=== PATIENT | female | born 1955 | race Caucasian/White ===

== ENCOUNTER 2020-09-14 18:32 | Emergency (ER) | payer OTHER, SELFPAY ==
--- NOTE | ~2020-09-14 | CT_ITS ---
EXAMINATION: CT cervical spine wo con DATE: 09/14/2020 20:00 INDICATION: Head injury. TECHNIQUE: Computed tomography (CT) of the cervical spine was performed without intravenous contrast. Automated exposure control and iterative reconstruction technique were employed. The dose-length pro duct was 1059.33 mGy-cm. COMPARISON: None FINDINGS: There is 3 degrees levocurvature of cervical spine. There is hypolordosis of cervical spine . Vertebral body heights are normal. There is moderately decreased disc height at C4-C5. The followin g disc levels are specifically discussed: C2-C3: There is mild left uncovertebral joint osteoarthritis. There is no facet joint osteoarthritis. There is no neural foraminal stenosis. There is no central canal stenosis. C3-C4: There is mild left uncovertebral joint osteoarthritis. There is mild right and moderate left f acet joint osteoarthritis. There is no neural foraminal stenosis. There is no central canal stenosis. C4-C5: There is moderate right and mild left uncovertebral joint osteoarthritis. There is no facet anju int osteoarthritis. There is mild right neural foraminal stenosis. There is mild central canal stenos is. C5-C6: There is no uncovertebral joint osteoarthritis. There is mild left facet joint osteoarthritis. There is no neural foraminal stenosis. There is no central canal stenosis. C6-C7: There is no uncovertebral joint osteoarthritis. There is no facet joint osteoarthritis. There is no neural foraminal stenosis. There is no central canal stenosis. C7-T1: There is no uncovertebral joint osteoarthritis. There is mild bilateral facet joint osteoarthr itis. There is no neural foraminal stenosis. There is no central canal stenosis. IMPRESSION: 1. No fracture. 2. Moderate cervical spondylosis. Reviewed, dictated and finalized at location A.
--- NOTE | ~2020-09-14 | XR_ITS ---
EXAMINATION: XR chest 2V DATE: 09/14/2020 20:01 INDICATION: Weakness. Fall. TECHNIQUE: Frontal and lateral views of the chest were obtained. COMPARISON: None. FINDINGS: Calcified right lung nodules and calcified right hilar and mediastinal lymph nodes are cons istent with old granulomatous disease. No pleural effusion or pneumothorax. The heart size is normal. There is a fracture of surgical neck of proximal left humerus with impaction. IMPRESSION: 1. No acute cardiopulmonary disease. 2. Fracture of surgical neck of proximal left humerus, likely chronic. Reviewed, dictated and finalized at location A.
--- NOTE | ~2020-09-14 | CT_ITS ---
EXAMINATION: CT brain wo con DATE: 09/14/2020 20:00 INDICATION: Head injury. TECHNIQUE: Computed tomography (CT) of the head was performed without intravenous contrast. The mA wa s adjusted according to patient size. Iterative reconstruction technique was employed. The dose-lengt h product was 1059.33 mGy-cm. COMPARISON: None FINDINGS: There are scattered areas of low attenuation in the cerebral white matter. There are old la cunar infarcts in left thalamus. There is a 3.9 x 2.7 cm hyperdense mass in suprasellar cistern cente red to the left of midline. There are embolization coils adjacent to the mass. There is no intracrani al hemorrhage. The ventricles are normal in size. There is opacification of the visualized portion of right maxillary sinus. There are likely changes of ocular lens replacement surgeries. The mastoid ai r cells are normal. IMPRESSION: 1. 3.9 cm hyperdense mass in suprasellar cistern, likely a giant aneurysm given the adjacent emboliza tion coils. Consider head CTA. 2. Old lacunar infarcts in left thalamus. 3. Mild nonspecific cerebral white matter disease, which likely represents chronic small vessel ische bee disease. Reviewed, dictated and finalized at location A. IMPRESSION: 1. 3.9 cm hyperdense mass in suprasellar cistern, likely a giant aneurysm given the adjacent embolization coils. Consider head CTA. 2. Old lacunar infarcts in left thalamus. 3. Mild nonspecific cerebral white matter disease, which likely represents chart reader patricia small vessel ischemic disease.
--- NOTE | ~2020-09-14 | CT_ITS ---
EXAMINATION: CTA brain carotid DATE: 09/14/2020 21:54 INDICATION: Cerebrovascular accident. Cerebral aneurysm. TECHNIQUE: Computed tomographic angiography (CTA) of the head was performed without and with 100 mL O mnipaque-350 intravenous contrast. CTA of the neck was performed with intravenous contrast. Automated exposure control and iterative reconstruction technique were employed. The dose-length product was 1 124.45 mGy-cm. Maximum intensity projection and volume rendered 3D-reconstructions were created by john schmid technologist on a separate workstation. COMPARISON: Head CT at 7:33 PM FINDINGS: HEAD CTA: There are old lacunar infarcts in the left thalamus. There are scattered areas of low atten uation in the cerebral white matter. There is no intracranial hemorrhage, acute infarction, or abnorm al intracranial mass lesion. The ventricles are normal in size. There is complete opacification of ri ght maxillary sinus. There are likely changes of ocular lens replacement surgeries. The mastoid air c ells are normal. Left vertebral artery is dominant. There is a stent in basilar artery. There is a st ent in right posterior cerebral artery. There is a 3.9 x 2.7 cm basilar tip aneurysm. There is a coil mass in the aneurysm. There is contrast opacification in the aneurysm measuring 16 x 13 mm. There is no significant stenosis of the intracranial internal carotid arteries or anterior or middle cerebral arteries. 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 Anterior communicating a rtery is normal. The posterior communicating arteries are likely embolized distally. NECK CTA: There is ectasia of the visualized portion of ascending aorta measuring 4.0 cm. Calcified m ediastinal lymph nodes are consistent with old granulomatous disease. There are no pathologically enl arged lymph nodes. There are is a an 8 mm nodule in left thyroid lobe, likely not clinically signific ant. There is no significant stenosis of the vertebral arteries. There is plaque in the proximal inte rnal carotid arteries with 0% stenosis relative to normal distal artery lumen diameters. There is mod erate cervical spondylosis. IMPRESSION: 1. 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 2. 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 3. Old lacunar infarcts in left thalamus. 4. Mild nonspecific cerebral white matter disease, which likely represents chronic small vessel ische bee disease. 5. 0% stenosis of the proximal internal carotid arteries relative to normal distal artery lumen diame ters (NASCET criteria). Reviewed, dictated and finalized at location A. IMPRESSION: 1. 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 2. 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 3. Old lacunar infarcts in left thalamus. 4. 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 5. 0% stenosis of the proximal internal carotid arteries relative to normal dis lilo artery lumen diameters (NASCET criteria).
[2020-09-14 18:35] VITALS: BP 131/98; PULSE 92; RESP 20; TEMP 36.7; O2SAT 94
--- NOTE | 2020-09-14 19:11 | ECG_ITS ---
Measurements Intervals [place] Rate: 98 P: 56 MA: 165 QRS: 20 QRSD: 94 T: 70 QT: 356 QTc: 456 Interpretive Statements SINUS RHYTHM ANTERIOR INFARCT, AGE INDETERMINATE INFERIOR INFARCT, AGE INDETERMINATE BORDERLINE ST-T WAVE ABNORMALITY- HIGH LATERAL LEADS BASELINE ARTIFACT- I, III, AVL, V6 ABNORMAL ECG Electronically Signed On 09-14-2020 20:17:46 CDT by Juan Carlos Bailey D.O.
--- NOTE | 2020-09-14 19:26 | ED.FALL ---
HPI - Fall General Chief Complaint: Fall Stated Complaint: glf, sleepy today Time Seen by Provider: 09/14/20 18:59 Source: family Mode of arrival: EMS Limitations: dementia and other (cva) History of Present Illness HPI Narrative: This is a 65 year old female with history of cerebral aneurysm, CVA with right side hemiparesis, Hypertension who presents from [facility] for evaluation of a fall. Her son is at bedside and he states patient suffered a stroke 1 month ago. She was admitted to [facility] for 1 week and [facility] for 3 weeks. She is now staying at correction in [place]. She has minimal movement to right arm due to CVA and she has slurred speech from her stroke. He states he was told patient had an unwitnessed fall, but patient denies hitting her head. Patient is lethargic but he states patient has been having intermittent episodes of lethargy for several weeks before her stroke. Patient states she fell because she was dizzy. She denies headache, nausea, vomiting, chest pain, sob, abdominal pain. Son also notes patient has broken left arm. He states ortho states left arm does not require splinting or surgery Related Data Home Medications Medication Instructions Recorded Confirmed acetaminophen 325 mg PO ONCE PRN 09/14/20 09/14/20 aspirin 325 mg PO DAILY 09/14/20 atorvastatin 80 mg PO DAILY 09/14/20 clopidogrel 75 mg PO DAILY 09/14/20 enoxaparin 40 mg SUBCUT DAILY 09/14/20 09/14/20 ergocalciferol (vitamin D2) 1,250 mcg PO WEEKLY 09/14/20 09/14/20 fluoxetine 20 mg PO DAILY 09/14/20 09/14/20 lidocaine ea 09/14/20 lisinopril 5 mg PO DAILY 09/14/20 09/14/20 metoprolol succinate 25 mg PO DAILY 09/14/20 09/14/20 polyethylene glycol 3350 [Miralax] 09/14/20 sennosides [senna] 8.6 mg PO DAILY PRN 09/14/20 Allergies Allergy/AdvReac Type Severity Reaction Status Date / Time No Known Allergies Allergy Verified 09/14/20 18:58 Review of Systems Review of Systems: ROS unobtainable: Yes unobtainable due to medical condition [facility] Past Medical History Medical History (Updated 09/15/20 @ 06:11 by Heather Rosenthal MD) Cataract Cerebral aneurysm CVA (cerebral vascular accident) Hypertension Proximal humerus fracture Surgical History Surgical History (Updated 09/14/20 @ 19:32 by Heather Rosenthal MD) S/P clamping of cerebral aneurysm Social History Social History (Updated 09/14/20 @ 19:32 by Heather Rosenthal MD) Smoking status: Current every day smoker Exam Const: General: no acute distress Other: lethargic , responds to voice. 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 oriented to person and place Course Reevaluation(s) Reevaluation #1: PAtient's son is at bedside. He states patient is at her baseline and she is just here because she fell. I discussed labs and imaging. HE is aware of 2 aneursym and her [facility] doctors are following. He is comfortable with discharge. He has no questions or concerns. Date: 09/14/20 Time: 23:00 Vital Signs Vital signs: Vital Signs Temperature 98.1 F 09/14/20 18:35 Pulse Rate 92 09/14/20 18:35 Respiratory Rate 20 09/14/20 18:35 Blood Pressure 131/98 H 09/14/20 18:35 Pulse Oximetry 94 09/14/20 18:35 Temperature 98.1 F 09/14/20 18:35 Pulse Rate 92 09/14/20 18:35 Respiratory Rate 20 09/14/20 18:35 Blood Pressure 131/98 H 09/14/20 18:35 Pulse Oximetry 94 09/14/20 18:35 MDM - Fall L
[2020-09-14 19:31] LABS: Alveolar/Arterial O2 Gradient 39.1 mmHg; Base Excess ABG -0.4 mEq/l (+/-2.0); Carboxyhemoglobin 0.9 % THb (0-2.0); Device ROOM AIR; Fractional Inspired Oxygen 21 %; Methemoglobin ABG 0.2 %THb (0-1.5); Modified Allen's Test Pass; Oxygen Content ABG 19.5 %vol (16.0-22.0); Oxygen Saturation ABG 94.8 % (95.0-100.0); Oxyhemoglobin 93.5 % THb (90.0-100.0); PCO2 ABG 34.2 mmHg (35.0-45.0); PO2 ABG 69.7 mmHg (80.0-100.0); PO2 FiO2 Ratio Arterial Blood 3.32 %; Reduced Hemoglobin 5.4 %THb (0-5.0); Site Drawn RIGHT RADIAL; Total Hemoglobin 14.8 g/dL (12.0-18.0); pH ABG 7.446 (7.350-7.450)
[2020-09-14 20:17] LABS: Basophils Percent Auto 0.4 % (0.2-1.2); Eosinophils Percent Auto 0.2 % (0-4.4); Hematocrit 44.1 % (37.0-47.0); Hemoglobin 14.4 g/dL (12.0-15.0); Immature Granulocyte Absolute 0.04 K/mm3 (0.00-0.031); Immature Granulocyte Percent A 0.4 % (0-0.5); Immature Platelet Fraction Pct 1.8 % (0.9-11.2); Lymphocytes Absolute Auto 1.63 K/mm3 (0.9-3.2); Mean Corpuscular HGB Conc 32.7 g/dl (32-36); Mean Corpuscular Hemoglobin 29.2 pg (26-34); Mean Corpuscular Volume 89.5 fl (80-100); Mean Platelet Volume 9.3 fl (7.4-10.4); Monocytes Absolute Auto 0.6 K/mm3 (0.1-0.6); Monocytes Percent Auto 6.3 % (2.6-8.5); Neutrophils Absolute Auto 7.8 K/mm3 (1.3-6.7); Neutrophils Percent Auto 76.7 % (45.5-73.1); Platelet Count Result 296 k/mm3 (150-375); Red Blood Count 4.93 M/mm3 (4.2-5.4); Red Cell Distribution Width 11.8 % (11.5-14.5); White Blood Count 10.2 K/mm3 (4.5-10.0)
[2020-09-14 20:24] LABS: Prothrombin Time 13.5 Seconds (11.1-14.7)
[2020-09-14 20:26] LABS: Potassium 4.1 mmol/L (3.4-5.0)
[2020-09-14 20:29] LABS: Alanine Aminotransferase 31 U/L (4-35); Albumin Level 4.1 g/dL (3.5-5.1); Alkaline Phosphatase 62 U/L (38-126); Anion Gap 6 mmol/L (8-16); Aspartate Amino Transferase 22 U/L (14-36); Bilirubin,Total 0.5 mg/dL (0.2-1.3); Blood Urea Nitrogen 12 mg/dL (7-17); Calcium 9.2 mg/dL (8.4-10.2); Carbon Dioxide 26 mmol/L (22-30); Chloride 105 mmol/L (98-107); Estimated CRCL calculation 84 ml/min; Estimated Glomerular Filt Rate > 60; Glucose 122 mg/dL (65-105); Sodium 137 mmol/L (137-145)
[2020-09-14 20:40] LABS: Platelet Estimate Adequate (Adequate)
[2020-09-14 20:41] LABS: Large Platelets Present; Platelet Clumps Present
[2020-09-14 22:22] LABS: Add Urine Microscopic? YES; Appearance Urine Cloudy (Clear); Bilirubin Urine Negative (Negative); Blood Urine Negative (Negative); Color Urine Yellow (Yellow); Glucose Urine UA Negative (Negative); Ketones Urine Negative (Negative); Leukocyte Esterase Ur Negative LEU/UL (Negative); Mucus Urine Few /lpf; Nitrate Urine Negative (Negative); Protein Urine 1+ mg/dL (Negative); RBC Urine 0-2 /hpf (0-2); Squamous Epithelial Cell Urine Few /hpf (Few); WBC Urine 0-3 /hpf
[2020-09-14 22:39] LABS: Specific Grav Ur 1.044 (1.001-1.035)
--- NOTE | 2020-09-14 23:27 | PC.NURSE ---
called [facility] to request transport. ETA 45 minutes.
--- NOTE | 2020-09-15 00:35 | PC.NURSE ---
called [facility] for ETA update. ETA [id number]
--- NOTE | 2020-09-15 01:41 | PC.NURSE ---
called [facility] for ETA update. ETA [id number]
--- NOTE | 2020-09-15 02:10 | PC.NURSE ---
[facility] here.
== END 2020-09-15 02:23 ==
PROVIDERS: Emergency Provider General Practice
DX: S09.90XA Unspecified injury of head, initial encounter (principal); I69.951 Hemiplegia and hemiparesis following unspecified cerebrovascular disease affecting right dominant side; I69.928 Other speech and language deficits following unspecified cerebrovascular disease; I10 Essential (primary) hypertension; S42.212D Unspecified displaced fracture of surgical neck of left humerus, subsequent encounter for fracture with routine healing; F17.200 Nicotine dependence, unspecified, uncomplicated; Z79.82 Long term (current) use of aspirin; R94.31 Abnormal electrocardiogram [ECG] [EKG]; R90.82 White matter disease, unspecified; M47.812 Spondylosis without myelopathy or radiculopathy, cervical region; W19.XXXA Unspecified fall, initial encounter; X58.XXXD Exposure to other specified factors, subsequent encounter
CPT/HCPCS: 36415; 36600; 70450; 70496; 70498; 71046; 72125; 80053; 81001; 82375; 82805; 83050; 85025; 85055; 85610; 85730; 93005; 99284; Q9967

== ENCOUNTER 2020-10-24 15:57 | Emergency (ER) | payer OTHER, SELFPAY ==
[2020-10-24] VITALS (16 sets, daily range): BP systolic 101–140; BP diastolic 69–95; PULSE 87–96; RESP 18; TEMP 36.6; O2SAT 97–100
--- NOTE | ~2020-10-24 | CT_ITS ---
EXAMINATION: CT cervical spine wo con DATE: 10/24/2020 17:12 INDICATION: Fall. Laceration to occipital area. TECHNIQUE: Computed tomography (CT) of the cervical spine was performed without intravenous contrast. Automated exposure control and iterative reconstruction technique were employed. Exam dose: 281.03 mGy-cm total exam DLP. COMPARISON: None FINDINGS: There is straightening of the cervical spine. C1 and C2 are normally aligned and the odontoid process is intact. No fracture or dislocation or lock ed facet or prevertebral soft tissue swelling. Moderately severe degenerative disc disease at C4-5. Mild degenerative disc disease at C5-6, C6-7. IMPRESSION: Straightening of cervical spine No fracture or dislocation, locked facet or prevertebral soft tissue swelling Degenerative disc disease at C4-5 and to a lesser extent C5-6 Reviewed, dictated and finalized at [facility]. Reviewed, dictated and finalized at location A.
--- NOTE | ~2020-10-24 | CT_ITS ---
EXAMINATION: CT brain wo con DATE: 10/24/2020 17:11 INDICATION: Fall. Laceration to occipital area. TECHNIQUE: Computed tomography (CT) of the head was performed without intravenous contrast. The mA wa s adjusted according to patient size. Iterative reconstruction technique was employed. Exam dose: 52 9.67 mGy-cm total exam DLP. COMPARISON: 09/14/2020 CT brain and CTA brain carotid FINDINGS: Giant heterogeneous relatively hyperdense previously reported basilar tip aneurysm measurin g up to 3.9 cm maximal dimension, not changed significantly in appearance compared to 09/14/2020. There is extensive streak artifact from aneurysm coils. Prominent bilateral carotid siphon internal carotid artery calcifications and prominent left right ve rtebral artery and basilar artery calcifications. Chronic lacunar infarcts of the left thalamus are again noted. Patchy diminished attenuation of the cerebral white matter is also again noted, likely due to chronic small vessel ischemic changes. No skull fracture or bone destruction. No subdural or epidural hematoma is evident. There is extensive opacification of the right maxillary sinus as noted previously. There is mucosal t hickening along the anterior wall of the right sphenoid sinus. The mastoid air cells are unremarkable . No interval intracranial mass lesion or hemorrhage, midline shift or mass effect effect or subdural o r epidural hematoma is detected. IMPRESSION: Giant basilar tip aneurysm, stable since 09/14/2020 Extensive cerebral atherosclerosis and chronic small vessel ischemic changes of the cerebral white ma tter Chronic lacunar infarct left thalamus Soft tissue infiltration of the subcutaneous fat at the posterior scalp minimal subcutaneous emphysem a consistent with history of laceration posteriorly; no coup or contrecoup intracranial injury is not ed. No acute intracranial finding or skull fracture Reviewed, dictated and finalized at [facility]. Reviewed, dictated and finalized at location A. IMPRESSION: Giant basilar tip aneurysm, stable since 09/14/2020 Extensive cerebral atherosclerosis and chronic small vessel ischemic changes of the cerebral white matter Chronic lacunar infarct left thalamus Soft tissue infiltration of the subcutaneous fat at the posterior scalp minimal subcutaneous emphysema consistent with history of laceration posteriorly; no c oup or contrecoup intracranial injury is noted. No acute intracranial finding or skull fracture
[2020-10-24 17:03] LABS: Basophils Absolute Auto 0.1 K/mm3 (0.0-0.1); Basophils Percent Auto 0.5 % (0.2-1.2); Eosinophils Percent Auto 0.2 % (0-4.4); Hematocrit 44.4 % (37.0-47.0); Hemoglobin 14.4 g/dL (12.0-15.0); Immature Granulocyte Absolute 0.03 K/mm3 (0.00-0.031); Immature Granulocyte Percent A 0.3 % (0-0.5); Lymphocytes Absolute Auto 2.02 K/mm3 (0.9-3.2); Lymphocytes Percent Auto 19.6 % (18.3-44.2); Mean Corpuscular HGB Conc 32.4 g/dl (32-36); Mean Corpuscular Hemoglobin 28.7 pg (26-34); Mean Corpuscular Volume 88.4 fl (80-100); Mean Platelet Volume 9.2 fl (7.4-10.4); Monocytes Percent Auto 9.3 % (2.6-8.5); Neutrophils Absolute Auto 7.3 K/mm3 (1.3-6.7); Neutrophils Percent Auto 70.1 % (45.5-73.1); Platelet Count Result 333 k/mm3 (150-375); Red Blood Count 5.02 M/mm3 (4.2-5.4); Red Cell Distribution Width 12.4 % (11.5-14.5); White Blood Count 10.3 K/mm3 (4.5-10.0)
[2020-10-24 17:14] LABS: Alanine Aminotransferase 20 U/L (4-35); Albumin Level 3.9 g/dL (3.5-5.1); Alkaline Phosphatase 49 U/L (38-126); Anion Gap 13 mmol/L (8-16); Aspartate Amino Transferase 19 U/L (14-36); Bilirubin,Total 0.2 mg/dL (0.2-1.3); Blood Urea Nitrogen 12 mg/dL (7-17); Calcium 9.3 mg/dL (8.4-10.2); Carbon Dioxide 21 mmol/L (22-30); Chloride 105 mmol/L (98-107); Estimated CRCL calculation 67 ml/min; Estimated Glomerular Filt Rate > 60; Glucose 125 mg/dL (65-105); Sodium 139 mmol/L (137-145)
--- NOTE | 2020-10-24 18:11 | ED.HEATRA ---
HPI - Head Injury General Chief complaint: Head Injury Stated complaint: FALL Time Seen by Provider: 10/24/20 16:32 Source: patient and family Mode of arrival: EMS Limitations: clinical condition History of Present Illness HPI Narrative: 65-year-old with a history of CVA, wheelchair-bound, history of basilar aneurysm is scheduled for coiling at [place] next week [facility] with complaints of fall. Patient son who is the main history provider was at the bedside states that patient was trying to transfer herself from wheelchair to the bed lost her balance and fell backwards. No history of loss of consciousness denies any other injuries. She denies any neck pain, chest pain or shortness of breath or hip pain MD Complaint: head injury Arrival Conditions: C-spine immobilization present Mechanism of Injury: other (Lost balance while transferring to a bed) Place: other ([facility]) Loss of Consciousness: no Location of injury: occipital Severity: mild Quality: dull Radiation: none Other Injuries: none Associated symptoms: denies other symptoms Related Data Home Medications Medication Instructions Recorded Confirmed acetaminophen 325 mg PO ONCE PRN 09/14/20 09/14/20 aspirin 325 mg PO DAILY 09/14/20 atorvastatin 80 mg PO DAILY 09/14/20 clopidogrel 75 mg PO DAILY 09/14/20 enoxaparin 40 mg SUBCUT DAILY 09/14/20 09/14/20 ergocalciferol (vitamin D2) 1,250 mcg PO WEEKLY 09/14/20 09/14/20 fluoxetine 20 mg PO DAILY 09/14/20 09/14/20 lidocaine ea 09/14/20 lisinopril 5 mg PO DAILY 09/14/20 09/14/20 metoprolol succinate 25 mg PO DAILY 09/14/20 09/14/20 polyethylene glycol 3350 [Miralax] 09/14/20 sennosides [senna] 8.6 mg PO DAILY PRN 09/14/20 megestrol 10/24/20 Allergies Allergy/AdvReac Type Severity Reaction Status Date / Time No Known Allergies Allergy Verified 10/24/20 16:13 Review of Systems Review of Systems: All systems reviewed & are unremarkable except as noted in HPI and below Constitutional: Constitutional: Reports no additional constitutional complaints Eyes: Eyes: Reports no additional eye complaints ENT: Reports system reviewed and no additional complaints, except as documented Cardiovascular: Cardiovascular: Reports no additional cardiovascular complaints Respiratory: Respiratory: Reports no additional respiratory complaints Gastrointestinal: Gastrointestinal: Reports no additional gastrointestinal complaints Musculoskeletal: Musculoskeletal: Reports no additional musculoskeletal complaints Neurologic: Reports system reviewed and no additional complaints, except as documented PMFSH Past Medical History Medical History Cataract Cerebral aneurysm CVA (cerebral vascular accident) Hypertension Proximal humerus fracture Surgical History Surgical History S/P clamping of cerebral aneurysm Social History Social History Smoking status: Current every day smoker Gender identity (if verbalized by the patient): Female Exam Narrative: Exam Narrative: GENERAL: Well-appearing, well-nourished, and in no acute distress. HEAD: Normocephalic, has a small occipital hematoma with a puncture wound with minimal bleeding EYES: PERRLA and EOMI. ENT: Nares clear, no rhinorrhea or epistaxis. Mucous membranes moist. NECK: Supple. CHEST: Clear to auscultation. No respiratory distress. HEART: Regular rate and rhythm. No murmur heard. Normal peripheral pulses. ABDOMEN: Soft, nontender, nondistended, normal active bowel sounds. EXTREMITIES: Normal range of motion. No edema. SKIN: Warm, dry, no rash. NEURO: No focal deficits. Alert and oriented x3. PSYCH: Normal mood and affect. Course Course Emergency Course: Inform patient and her son about the lab and CT findings. Advised fall precautions continue home medication and foll
--- NOTE | 2020-10-24 22:34 | PC.NURSE ---
Called report to nurse Gonzalez at [facility] .
[2020-10-25 01:20] VITALS: BP 126/78; PULSE 78; RESP 18; O2SAT 98
[2020-10-25 03:15] VITALS: BP 117/78; PULSE 78; RESP 18; O2SAT 99
[2020-10-25 04:58] VITALS: BP 126/78; PULSE 78; RESP 20; O2SAT 100
== END 2020-10-25 04:59 ==
PROVIDERS: Emergency Provider Family Medicine; PCP Internal Medicine
DX: S09.90XA Unspecified injury of head, initial encounter (principal); S01.03XA Puncture wound without foreign body of scalp, initial encounter; I67.1 Cerebral aneurysm, nonruptured; I10 Essential (primary) hypertension; Z86.73 Personal history of transient ischemic attack (TIA), and cerebral infarction without residual deficits; F17.200 Nicotine dependence, unspecified, uncomplicated; H26.9 Unspecified cataract; Z99.3 Dependence on wheelchair; I67.2 Cerebral atherosclerosis; M50.321 Other cervical disc degeneration at C4-C5 level; W05.0XXA Fall from non-moving wheelchair, initial encounter
CPT/HCPCS: 36415; 70450; 72125; 80053; 85025; 99284

== ENCOUNTER 2020-10-28 02:57 | Inpatient (IN) | payer OTHER, SELFPAY ==
[2020-10-28] VITALS (7 sets, daily range): BP systolic 116–129; BP diastolic 60–91; PULSE 68–119; RESP 16–20; TEMP 36.2–36.9; O2SAT 95–100; BMI 26.9
--- NOTE | ~2020-10-28 | XR_ITS ---
EXAMINATION: XR hip RT 2V w AP pelvis INDICATION: Right hip pain, initial encounter TECHNIQUE: AP view the pelvis and two views of the right hip are obtained. COMPARISON: None available FINDINGS: There is an acute, traumatic closed, subcapital fracture of the right femoral neck. There i s proximal migration of the femoral neck with respect to the femoral head. No additional acute osseou s abnormality is identified. IMPRESSION: 1. Acute subcapital right femoral neck fracture. Reviewed, dictated and finalized at location A.
--- NOTE | ~2020-10-28 | XR_ITS ---
EXAMINATION: XR hip RT min 2V DATE: 10/31/2020 11:22 INDICATION: Right bipolar hip arthroplasty TECHNIQUE: 2 views right hip FINDINGS: There is a right bipolar hip arthroplasty in expected position. Subcutaneous gas with soft tissue swelling are consistent with recent surgery. IMPRESSION: 1. Recent right bipolar hip arthroplasty. Reviewed, dictated and finalized at location B.
--- NOTE | ~2020-10-28 | XR_ITS ---
EXAMINATION: XR chest 1V portable INDICATION: Pain after fall TECHNIQUE: Portable AP chest at 0434 hours COMPARISON: 09/14/2020 FINDINGS: The lungs are free of acute opacities. There is no pleural effusion or pneumothorax. The ca rdiomediastinal silhouette is normal. Again noted is a partially imaged fracture of the proximal left humerus. IMPRESSION: 1. No acute cardiopulmonary abnormality. Reviewed, dictated and finalized at location A.
--- NOTE | ~2020-10-28 | CT_ITS ---
EXAMINATION: CT brain wo con INDICATION: Head injury COMPARISON: 10/24/2020, 09/14/2020 TECHNIQUE: Standard unenhanced head CT. The dose-length product (DLP) was 605.33 mGy-cm. The mA was a djusted according to patient size. Iterative reconstruction technique was employed. FINDINGS: There is no acute intraparenchymal hemorrhage although sensitivity is somewhat limited by s treak artifact. No evidence of mass lesion. 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 Also noted are stents in the right posterior cerebral artery and the basilar artery. No evidence of acute infarction. An old lacunar infarct is noted in the left thalamu s. There is mild periventricular and subcortical hypodensity probably related to small vessel ischemi c disease. There is mild prominence of the sulci and ventricles related to cerebral atrophy. Intracra nial calcified cerebral atherosclerosis is noted. There are no extra-axial collections. There is no m ass effect or midline shift. Changes in the globes are likely from ocular lens surgery. There is near complete opacification of the right maxillary sinus. IMPRESSION: 1. 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 2. Age related findings. Reviewed, dictated and finalized at location A. IMPRESSION: 1. 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 2. Age related findings.
--- NOTE | 2020-10-28 04:19 | ED.LOWEXIN ---
HPI - Extremity Injury (Lower) General Chief Complaint: Extremity Injury, Lower Stated Complaint: hip fx Time Seen by Provider: 10/28/20 02:59 History of Present Illness HPI Narrative: Patient is a 65-year-old female who presents ER with right hip pain. Patient attempted to ambulate when she is not supposed to and fell striking her head. No new numbness or tingling. Received fentanyl 25 mcg by EMS. Patient is oriented x2 which is her baseline. Patient is a group home due to debilitating stroke. She is receiving Lovenox injections. No head trauma. Related Data Home Medications Medication Instructions Recorded Confirmed acetaminophen 325 mg PO ONCE PRN 09/14/20 09/14/20 aspirin 325 mg PO DAILY 09/14/20 atorvastatin 80 mg PO DAILY 09/14/20 clopidogrel 75 mg PO DAILY 09/14/20 enoxaparin 40 mg SUBCUT DAILY 09/14/20 09/14/20 ergocalciferol (vitamin D2) 1,250 mcg PO WEEKLY 09/14/20 09/14/20 fluoxetine 20 mg PO DAILY 09/14/20 09/14/20 lidocaine ea 09/14/20 lisinopril 5 mg PO DAILY 09/14/20 09/14/20 metoprolol succinate 25 mg PO DAILY 09/14/20 09/14/20 polyethylene glycol 3350 [Miralax] 09/14/20 sennosides [senna] 8.6 mg PO DAILY PRN 09/14/20 megestrol 10/24/20 Allergies Allergy/AdvReac Type Severity Reaction Status Date / Time No Known Allergies Allergy Verified 10/24/20 16:13 Review of Systems Review of Systems: ROS unobtainable: Yes unobtainable due to mental status PMFSH Past Medical History Medical History Cataract Cerebral aneurysm CVA (cerebral vascular accident) Hypertension Proximal humerus fracture Surgical History Surgical History S/P clamping of cerebral aneurysm Social History Social History Smoking status: Current every day smoker Gender identity (if verbalized by the patient): Female Exam Narrative: Exam Narrative: GENERAL: Chronically ill-appearing, well-nourished, and in no acute distress. HEAD: Normocephalic, atraumatic. ENT: Mucous membranes moist. CHEST: Clear to auscultation. No respiratory distress. HEART: Regular rate and rhythm. Normal peripheral pulses. ABDOMEN: Soft, nontender, nondistended. EXTREMITIES: Tender palpation right hip. Patient is laying on her side in the position which is her position of comfort. Sensation and pulses intact infected extremity. SKIN: Warm, dry, no rash. NEURO: Alert and oriented x2. Course Course Emergency Course: Discussed with Dr. Musa. Recommends medical admission for surgical fixation. Patient and son informed of diagnosis and treatment plan. Vital Signs Vital signs: Vital Signs Temperature 98.3 F 10/28/20 03:00 Pulse Rate 86 10/28/20 03:00 Respiratory Rate 18 10/28/20 03:00 Blood Pressure 118/88 10/28/20 03:00 Pulse Oximetry 97 10/28/20 03:00 Temperature 98.3 F 10/28/20 03:00 Pulse Rate 94 10/28/20 05:00 Respiratory Rate 16 10/28/20 05:00 Blood Pressure 129/60 10/28/20 05:00 Pulse Oximetry 97 10/28/20 05:00 MDM - Extremity Injury (Lower) Lab Data Result diagrams: 10/28/20 04:45 10/28/20 04:45 Labs: Lab Results 10/28/20 10/28/20 10/28/20 Range/Units 04:45 04:45 04:45 WBC 14.4 H (4.5-10.0) K/mm3 RBC 4.83 (4.2-5.4) M/mm3 Hgb 13.9 (12.0-15.0) g/dL Hct 42.6 (37.0-47.0) % MCV 88.2 (80-100) fl MCH 28.8 (26-34) pg MCHC 32.6 (32-36) g/dl RDW 12.5 (11.5-14.5) % Plt Count 319 (150-375) k/mm3 MPV 9.1 (7.4-10.4) fl Immature Gran % (Auto) 0.6 H (0-0.5) % Neut % (Auto) 80.3 H (45.5-73.1) % Lymph % (Auto) 12.8 L (18.3-44.2) % [place] % (Auto) 6.0 (2.6-8.5) % Eos % (Auto) 0.0 (0-4.4) % Baso % (Auto) 0.3 (0.2-1.2) % Lymph # (Auto) 1.84 (0.9-3.2) K/mm3 [place] # (Auto) 0.9 H (0.1-0.6) K/mm3 Eos # (Auto) 0.
--- NOTE | 2020-10-28 04:20 | ECG_ITS ---
Measurements Intervals [place] Rate: 96 P: 80 NM: 152 QRS: 61 QRSD: 82 T: 63 QT: 349 QTc: 442 Interpretive Statements SINUS RHYTHM LOW QRS VOLTAGE IN PRECORDIAL LEADS ANTERIOR INFARCT, AGE INDETERMINATE INFERIOR INFARCT, AGE INDETERMINATE BASELINE ARTIFACT- I, II, III, AVR, AVL, AVF, V2, V4-V6 ABNORMAL ECG Electronically Signed On 10-28-2020 8:21:29 CDT by Juan Carlos Bailey D.O.
[2020-10-28 04:51] LABS: Basophils Percent Auto 0.3 % (0.2-1.2); Hematocrit 42.6 % (37.0-47.0); Hemoglobin 13.9 g/dL (12.0-15.0); Immature Granulocyte Absolute 0.08 K/mm3 (0.00-0.031); Immature Granulocyte Percent A 0.6 % (0-0.5); Lymphocytes Absolute Auto 1.84 K/mm3 (0.9-3.2); Lymphocytes Percent Auto 12.8 % (18.3-44.2); Mean Corpuscular HGB Conc 32.6 g/dl (32-36); Mean Corpuscular Hemoglobin 28.8 pg (26-34); Mean Corpuscular Volume 88.2 fl (80-100); Mean Platelet Volume 9.1 fl (7.4-10.4); Monocytes Absolute Auto 0.9 K/mm3 (0.1-0.6); Neutrophils Absolute Auto 11.6 K/mm3 (1.3-6.7); Neutrophils Percent Auto 80.3 % (45.5-73.1); Platelet Count Result 319 k/mm3 (150-375); Red Blood Count 4.83 M/mm3 (4.2-5.4); Red Cell Distribution Width 12.5 % (11.5-14.5); White Blood Count 14.4 K/mm3 (4.5-10.0)
[2020-10-28 05:02] LABS: Prothrombin Time 13.5 Seconds (11.1-14.7)
[2020-10-28 05:03] LABS: Partial Thromboplastin Time 29.3 SECONDS (22.3-36.8)
[2020-10-28 05:07] LABS: Anion Gap 10 mmol/L (8-16); Blood Urea Nitrogen 9 mg/dL (7-17); Calcium 9.6 mg/dL (8.4-10.2); Carbon Dioxide 19 mmol/L (22-30); Chloride 108 mmol/L (98-107); Estimated CRCL calculation 92 ml/min; Estimated Glomerular Filt Rate > 60; Glucose 121 mg/dL (65-105); Potassium 4.4 mmol/L (3.4-5.0); Sodium 137 mmol/L (137-145)
[2020-10-28] MEDS: MORPHINE SULFATE (*CRX) 4 MG/ML INJ IV PUSH ×2 (05:37→08:45)
[2020-10-28] MEDS: ONDANSETRON INJ 4 MG/2 ML VIAL IV PUSH (05:37)
--- NOTE | 2020-10-28 06:10 | ADMGEN ---
This patient, Hui Wiseman, was admitted to 2 Medical Room 254-01. Patient/family oriented to hospital policies and general routines including ID bracelet, bed and alarms, visiting hours, pain management, procedures, bathroom and other care routines, personal items, smoking policy, room service/diet, and visiting hours. Information on how to activate the Rapid Response Team has been discussed. Patient/Family are encouraged to report perceived risks to care and to ask questions if they do not understand what they are told or what they should do.
--- NOTE | 2020-10-28 09:16 | PM.IMHP ---
H&P: HPI History of Present Illness Date/Time: 10/28/20 09:16 Chief Complaint: Fall Narrative: Patient is a 65 year old female with a past medical history of CVA, HTN, and Cerebral aneurysm that present to the ED after a fall at the [facility]. According to the ED note the patient was trying to walk when she is not supposed to falling hitting her head and obtaining a hip fracture. Upon entering the room this morning the patient did not say a whole lot. I did ask if she was in pain and then she moved and screamed saying that she was in pain. I asked her about where the pain was and she blankly stared at me before she just closed her eyes and went back to sleep. Patient did follow some simple commands and wiggled her toes and opened eyes. She was able to tell me her name, but when I ask where she was she looked around but did not have an answer. I did reorient her with which caused her to just mumble questions to herself. According to the chart this patient is on a lot of anticoagulation and was recently here for a similar instance on the . She is on lovenox and clopidogrel at the [facility]. It is also noted that the patient is scheduled to get a coiling at [place] soon. Review of Systems Review of Systems: ROS unobtainable: Yes unobtainable due to mental status PMFSH Past Medical History Medical History (Updated 10/28/20 @ 09:43 by ANGUS Del Toro) Cataract Cerebral aneurysm Constipation CVA (cerebral vascular accident) Depression Hyperlipidemia Hypertension Proximal humerus fracture Status post CVA Surgical History Surgical History S/P clamping of cerebral aneurysm Family History Family History (Updated 10/28/20 @ 09:25 by ANGUS Del Toro) Other Unknown family medical history Social History Social History (Updated 10/28/20 @ 09:27 by ANGUS Del Toro) Social History: According to the chart patient is a DNR and her POA is Nick Bermudez. Patient lives at [place]. Smoking status: Unknown if ever smoked Alcohol intake: unknown Substance use: unknown Substance use type: does not use Living arrangements: [facility] Occupation/Education: unemployed Gender identity (if verbalized by the patient): Female Sexual Orientation (if Verbalized by the Patient): Straight or Heterosexual Spiritual care concerns: No Meds Home Medications and Allergies Home Medications Medication Instructions Recorded Confirmed Type acetaminophen 650 mg PO Q6H PRN 09/14/20 10/28/20 History aspirin 325 mg PO DAILY 09/14/20 10/28/20 History atorvastatin 80 mg PO DAILY 09/14/20 10/28/20 History clopidogrel 75 mg PO DAILY 09/14/20 10/28/20 History enoxaparin 40 mg SUBCUT HS 09/14/20 10/28/20 History ergocalciferol (vitamin D2) 1,250 mcg PO WEEKLY 09/14/20 10/28/20 History fluoxetine 20 mg PO DAILY 09/14/20 10/28/20 History lidocaine 1 ea TOPICAL DAILY 09/14/20 10/28/20 History lisinopril 5 mg PO DAILY 09/14/20 10/28/20 History metoprolol succinate 25 mg PO DAILY 09/14/20 10/28/20 History polyethylene glycol 3350 [Miralax] 17 g PO DAILY 09/14/20 10/28/20 History sennosides [senna] 8.6 mg PO BID PRN 09/14/20 10/28/20 History megestrol 400 mg PO DAILY 10/24/20 10/28/20 History Allergies Allergy/AdvReac Type Severity Reaction Status Date / Time adhesive tape Allergy Unknown Verified 10/28/20 07:29 Vital Signs Vital Signs - 24 hr 10/28/20 03:00 10/28/20 03:30 10/28/20 04:00 Temperature 36.8 C Pulse Rate 86 85 88 Respiratory Rate 18 16 16 Blood Pressure 118/88 126/71 116/80 Pulse Oximetry 97 95 96 10/28/20 05:00 10/28/20 06:48 Temperature 36.6 C Pulse Rate 94 92 Respiratory Rate 16 18 Blood Pressure 129/60 129/84 Pulse Oximetry 97 98 Exam Const: General: cooperative, healthy appearing, comfortable (curled in a ball and would not straighten her legs), well developed, alert, lethargic, tired appearing
--- NOTE | 2020-10-28 13:46 | PM.CNOR ---
Assessment and Plan Assessment and plan (1) Fracture of hip: Code(s): S72.009A - Fracture of unspecified part of neck of unspecified femur, initial encounter for closed fracture Status: Acute (2) Status post CVA: Code(s): Z86.73 - Personal history of transient ischemic attack (TIA), and cerebral infarction without residual deficits Status: Acute Assessment and Plan: Displaced femoral neck fracture. Affecting the right side, which is hemiparetic due to a stroke several months ago. Has progressive dementia. Additionally, has been to the emergency room three times due to falls in recent weeks. Poor rehab potential. Has been unable to bear full weight on the right leg prior to the fracture. She is on Lovenox and Plavix due to a cerebral aneurysm. She is scheduled to have this coiled this week. Had a lengthy discussion with the patient's son, her nurse, and the nurse practitioner. The patient is a high risk surgical candidate <del>and</del> <del>was</del> <del>previously</del> <del>non</del> <del>ambulatory.</del> Progressive deterioration and multiple frequent falls over the past few weeks indicate a very high surgical risk, <del>without</del> <del>significant</del> <del>expected</del> <del>gain</del> <del>in</del> <del>function.</del> <del>Surgery</del> <del>is</del> <del>not</del> <del>recommended.</del> Her sons report that in recent weeks she was beginning to speak better and walk more. After consultation with the patient's neurosurgeon, it is clear that we can discontinue the anticoagulation safely. Her 2 sons wish to have the fractured hip addressed with surgery, to give the patient the best chance of mobility, and pain control. This is reasonable. The anticoagulation will be held until 1 week postoperative. In the meantime, she will be covered with lower dose Lovenox immediately postoperatively; then she may resume the previous Lovenox dose and Plavix in preparation for the neurosurgery procedure. Her sons express understanding regarding the risk of stroke and due to the surgery. They also understand that the patient is at high risk of falling and suffering another fracture. They are committed to working on fall prevention. History of Present Illness HPI Consult date: 10/29/20 Chief complaint: hip fracture Narrative: Patient complains of acute hip pain after a fall yesterday. Fell from standing height. Admitted through the emergency room for definitive management. No previous hip pain. Comfortable at rest. The patient is confused to time and place. She is poorly responsive. History of multiple falls over the past few weeks. History obtained from her son. Recent stroke affecting the right side. Was [facility] to the [facility] after a period of rehab. Her son states that she has been declining in function. Dementia has become more pronounced. She is unable to bear significant weight on the right side affected by hemiparesis. 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 She is on Lovenox and clopidogrel. She is scheduled to have a coil procedure this week at [place]. She is a DNR. I discussed the care plan at length with the hospitalist. I have been in contact with her neurosurgeon regarding the care plan. Review of Systems Review of Systems: Narrative: Review of systems not obtainable due to patient mental status. All systems reviewed & are unremarkable except as noted in HPI and below [facility] Past Medical History Medical History (Updated 10/29/20 @ 15:00 by ANGUS Del Toro) Cataract Cerebral aneurysm Constipation CVA (cerebral vascular accident) Depression Hyperlipidemia Hypertension Proximal humerus fracture Status post CVA Surgical History Surgical History S/P clamping of cerebral aneurysm Family History Family History (Updated 10/28/20 @ 09:25 by ANGUS Del Toro)
--- NOTE | 2020-10-28 16:48 | PC.NURSE ---
Neurologist, Dr Bowens @ [facility]. His scheduling nurse, Milla's number is [phone].
[2020-10-28] MEDS: ENOXAPARIN 40 MG/0.4 ML SYRINGE SUB-Q (20:12)
[2020-10-29 05:33] LABS: Hematocrit 42.7 % (37.0-47.0); Hemoglobin 13.8 g/dL (12.0-15.0); Mean Corpuscular HGB Conc 32.3 g/dl (32-36); Mean Corpuscular Hemoglobin 28.8 pg (26-34); Mean Corpuscular Volume 89.1 fl (80-100); Mean Platelet Volume 9.3 fl (7.4-10.4); Platelet Count Result 305 k/mm3 (150-375); Red Blood Count 4.79 M/mm3 (4.2-5.4); Red Cell Distribution Width 12.6 % (11.5-14.5); White Blood Count 11.3 K/mm3 (4.5-10.0)
[2020-10-29 05:55] LABS: Alanine Aminotransferase 20 U/L (4-35); Alkaline Phosphatase 58 U/L (38-126); Anion Gap 9 mmol/L (8-16); Aspartate Amino Transferase 26 U/L (14-36); Bilirubin,Total 0.8 mg/dL (0.2-1.3); Blood Urea Nitrogen 10 mg/dL (7-17); Calcium 9.8 mg/dL (8.4-10.2); Carbon Dioxide 23 mmol/L (22-30); Chloride 104 mmol/L (98-107); Estimated CRCL calculation 76 ml/min; Estimated Glomerular Filt Rate > 60; Glucose 126 mg/dL (65-105); Potassium 4.2 mmol/L (3.4-5.0); Sodium 136 mmol/L (137-145)
[2020-10-29 06:00] VITALS: BP 122/92; PULSE 108; RESP 20; TEMP 36.1; O2SAT 95
[2020-10-29 08:54] VITALS: PULSE 98
[2020-10-29] MEDS: polyethylene glycoL 3350 17 GM POWD.PACK PO (08:54)
[2020-10-29] MEDS: CLOPIDOGREL BISULFATE 75 MG TABLET PO (08:54)
[2020-10-29] MEDS: ERGOCALCIFEROL 50,000 UNIT CAPSULE 50000 UNITS PO (08:54)
[2020-10-29] MEDS: ASPIRIN 325 MG TABLET PO (08:54)
[2020-10-29] MEDS: FLUoxetine HCL 20 MG CAPSULE PO (08:54)
[2020-10-29] MEDS: ATORVASTATIN 40 MG TABLET 80 MG PO (08:54)
[2020-10-29] MEDS: METOPROLOL SUCCINATE EXT REL 25 MG TABCR PO (08:54)
[2020-10-29] MEDS: lisinopriL 5 MG TABLET PO (08:54)
[2020-10-29] MEDS: MEGESTROL ACETATE (*CHEMO) ORAL SUSP 40 MG/ML SYR 400 MG PO (08:55)
[2020-10-29 12:04] VITALS: BMI 26.9
--- NOTE | 2020-10-29 12:59 | PCNSR ---
On 10/29/20, the student,Ingrid Ontiveros, provided care and completed [facility] documentation on this patient. I have reviewed the student's documentation and agree with the findings.
[2020-10-29 14:00] VITALS: BP 130/70; PULSE 70; RESP 18; TEMP 36.4; O2SAT 95
--- NOTE | 2020-10-29 14:26 | P.PNIM_ITS ---
Progress Note: A&P Assessment and Plan (1) Fracture of hip: Qualifiers: Encounter type: initial encounter Fracture type: closed Laterality: right Qualified Code(s): S72.001A - Fracture of unspecified part of neck of right femur, initial encounter for closed fracture Code(s): S72.009A - Fracture of unspecified part of neck of unspecified femur, initial encounter for closed fracture Status: Acute Assessment and Plan: * Noted fall [facility] the [facility] * Hip xray showed Acute subcapital right femoral neck fracture. * Ortho consulted thank you * Morphine 2mg Q4hr for pain * Zofran 4mg Q6hr for nausea * anticoagulants have been placed on hold for now * Possible hip surgery in 2-3 days (2) Fall: Qualifiers: Encounter type: sequela Qualified Code(s): W19.XXXS - Unspecified fall, sequela Code(s): W19.XXXA - Unspecified fall, initial encounter Status: Inactive Assessment and Plan: * Fall at [facility]f * Tried to walk but patient is wheelchair bound * Hit her head, obtained a femoral neck fracture * Head ct ordered and pending * Fall precautions * Bed and chair alarm * PT/OT (3) Cerebral aneurysm: Code(s): I67.1 - Cerebral aneurysm, nonruptured Status: Inactive Assessment and Plan: * History of CVA * Supposed to have coil placed at [place] * Trend blood pressure * Head CT ordered and pending (4) Hypertension: Qualifiers: Hypertension type: essential hypertension Qualified Code(s): I10 - Essential (primary) hypertension Code(s): I10 - Essential (primary) hypertension Status: Inactive Assessment and Plan: * Current blood pressure 130/70 * Continue home lisinopril 5mg PO daily, metoprolol 25mg PO daily * Trend blood pressure, vital signs Q4hr * adjust medications as needed. (5) Hyperlipidemia: Qualifiers: Hyperlipidemia type: unspecified Qualified Code(s): E78.5 - Hyperlipidemia, unspecified Code(s): E78.5 - Hyperlipidemia, unspecified Status: Acute Assessment and Plan: * Continue home atorvastatin 80mg PO daily when not NPO (6) Depression: Qualifiers: Depression Type: unspecified Qualified Code(s): F32.9 - Major depressive disorder, single episode, unspecified Code(s): F32.9 - Major depressive disorder, single episode, unspecified Status: Acute Assessment and Plan: * Continue home fluoxetine 20mg PO daily when no longer NPO (7) Status post CVA: Code(s): Z86.73 - Personal history of transient ischemic attack (TIA), and cerebral infa rction without residual deficits Status: Acute Assessment and Plan: * Patient on clopidogrel 75mg PO daily and lovenox 40mg SQ daily, aspirin 325 PO daily * Will hold for now * CT ordered and pending Time Spent With Patient Time with patient: Greater than 35 minutes Subjective Date/time seen: 10/29/20 08:50 Interval history: Patient is a 65 year old female with a past medical history of CVA, HTN, and Cerebral aneurysm that present to the ED after a fall at the snf. Dr. Musa did talk with the family yesterday and it came to the conclusion that she would not be a surgical candidate, however, we have done some research and we got a number from the family for her neurologist however the number that was given wa
--- NOTE | 2020-10-29 14:26 | PM.IMPN ---
Progress Note: A&P Assessment and Plan (1) Fracture of hip: Qualifiers: Encounter type: initial encounter Fracture type: closed Laterality: right Qualified Code(s): S72.001A - Fracture of unspecified part of neck of right femur, initial encounter for closed fracture Code(s): S72.009A - Fracture of unspecified part of neck of unspecified femur, initial encounter for closed fracture Status: Acute Assessment and Plan: Noted fall at the group home Hip xray showed Acute subcapital right femoral neck fracture. Ortho consulted thank you Morphine 2mg Q4hr for pain Zofran 4mg Q6hr for nausea anticoagulants have been placed on hold for now Possible hip surgery in 2-3 days (2) Fall: Qualifiers: Encounter type: sequela Qualified Code(s): W19.XXXS - Unspecified fall, sequela Code(s): W19.XXXA - Unspecified fall, initial encounter Status: Inactive Assessment and Plan: Fall at group home Tried to walk but patient is wheelchair bound Hit her head, obtained a femoral neck fracture Head ct ordered and pending Fall precautions Bed and chair alarm PT/OT (3) Cerebral aneurysm: Code(s): I67.1 - Cerebral aneurysm, nonruptured Status: Inactive Assessment and Plan: History of CVA Supposed to have coil placed at [place] Trend blood pressure Head CT ordered and pending (4) Hypertension: Qualifiers: Hypertension type: essential hypertension Qualified Code(s): I10 - Essential (primary) hypertension Code(s): I10 - Essential (primary) hypertension Status: Inactive Assessment and Plan: Current blood pressure 130/70 Continue home lisinopril 5mg PO daily, metoprolol 25mg PO daily Trend blood pressure, vital signs Q4hr adjust medications as needed. (5) Hyperlipidemia: Qualifiers: Hyperlipidemia type: unspecified Qualified Code(s): E78.5 - Hyperlipidemia, unspecified Code(s): E78.5 - Hyperlipidemia, unspecified Status: Acute Assessment and Plan: Continue home atorvastatin 80mg PO daily when not NPO (6) Depression: Qualifiers: Depression Type: unspecified Qualified Code(s): F32.9 - Major depressive disorder, single episode, unspecified Code(s): F32.9 - Major depressive disorder, single episode, unspecified Status: Acute Assessment and Plan: Continue home fluoxetine 20mg PO daily when no longer NPO (7) Status post CVA: Code(s): Z86.73 - Personal history of transient ischemic attack (TIA), and cerebral infarction without residual deficits Status: Acute Assessment and Plan: Patient on clopidogrel 75mg PO daily and lovenox 40mg SQ daily, aspirin 325 PO daily Will hold for now CT ordered and pending Time Spent With Patient Time with patient: Greater than 35 minutes Subjective Date/time seen: 10/29/20 08:50 Interval history: Patient is a 65 year old female with a past medical history of CVA, HTN, and Cerebral aneurysm that present to the ED after a fall at the group home. Dr. Musa did talk with the family yesterday and it came to the conclusion that she would not be a surgical candidate, however, we have done some research and we got a number from the family for her neurologist however the number that was given was not active. I did reach out to her son and he stated that he just got off the phone with the neurologist whom recommends that the patient get her hip fixed before having the procedure done with the coil. I also got a new number for the neurologist, and left a message with them to call me back for further discussion. I did talk to Dr. Musa about this conversation. He wanted me to reach out to the neurologist but I cannot find the number. I was told by the son that neurology will reach out to ortho. I did try to reach out to A
--- NOTE | 2020-10-29 16:34 | PM.PNORT ---
Progress Note: A&P Additional Plan Patient is more responsive today, and slightly verbal. She followed commands and wiggled her toes. No significant edema. Calf nontender. The hip remains flexed. No significant swelling. She wiggles her toes and is more responsive. After follow-up discussion with the patient's sons we have agreed to proceed with bipolar hemiarthroplasty of the right hip. Arrangements have been made for surgery Thursday at 8:30 a.m. Anticoagulation has been held. Last dose of Lovenox was Thursday evening. Subjective Subjective Date/Time Seen: 10/29/20 16:34 Objective Data Vital Signs Vital Signs: Vital Signs - 24 hr 10/28/20 22:00 10/29/20 06:00 10/29/20 08:54 Temperature 36.2 C L 36.1 C L Pulse Rate 119 H 108 H 98 Respiratory Rate 20 20 Blood Pressure 126/91 H 122/92 H Pulse Oximetry 95 95 10/29/20 14:00 Temperature 36.4 C Pulse Rate 70 Respiratory Rate 18 Blood Pressure 130/70 Pulse Oximetry 95 Intake/Output Intake/Output: Intake & Output 10/26/20 10/27/20 10/28/20 10/29/20 23:59 23:59 23:59 23:59 Intake Total 240 Output Total 200 250 Balance -200 -10 Meds/Results Medications: Active Medications Generic Name Dose Route Start Last Admin Trade Name Freq PRN Reason Stop Dose Admin Aspirin 325 mg 10/29/20 09:00 10/29/20 08:54 Aspirin 325 Mg Tablet PO 325 mg DAILY KANDY Administration Atorvastatin Calcium 80 mg 10/29/20 09:00 10/29/20 08:54 Atorvastatin 40 Mg Tablet PO 80 mg DAILY KANDY Administration Clopidogrel Bisulfate 75 mg 10/29/20 09:00 10/29/20 08:54 Clopidogrel Bisulfate 75 Mg Tablet PO 75 mg DAILY KANDY Administration Enoxaparin Sodium 40 mg 10/28/20 21:00 10/28/20 20:12 Enoxaparin 40 Mg/0.4 Ml Syringe SUB-Q 40 mg HS KANDY Administration Ergocalciferol 50,000 unit 10/29/20 09:00 10/29/20 08:54 Ergocalciferol 50,000 Unit Capsule PO 50,000 unit Mo@0900 KANDY Administration Fluoxetine HCl 20 mg 10/29/20 09:00 10/29/20 08:54 Fluoxetine Hcl 20 Mg Capsule PO 20 mg DAILY KANDY Administration Tranexamic Acid/Sodium Chloride 1,000 mg in 100 mls @ 200 mls/hr 10/29/20 16:19 Tranexamic Acid 1,000mg/[id number] IVPB 10/29/20 16:48 ONCE ONE Cefazolin Sodium 2 gm in 50 mls @ 100 mls/hr 10/29/20 16:19 Ancef 2 Gm/D5w 50 Ml IVPB 10/29/20 16:48 ONCE ONE Lisinopril 5 mg 10/29/20 09:00 10/29/20 08:54 Lisinopril 5 Mg Tablet PO 5 mg DAILY KANDY Administration Megestrol Acetate 400 mg 10/29/20 09:00 10/29/20 08:55 Megestrol Acetate (*Chemo) Oral Susp 40 Mg/Ml Syr PO 400 mg DAILY KANDY Administration Metoprolol Succinate 25 mg 10/29/20 09:00 10/29/20 08:54 Metoprolol Succinate Ext Rel 25 Mg Tabcr PO 25 mg DAILY KANDY Administration Morphine Sulfate 2 mg 10/28/20 15:58 Morphine Sulfate (*Crx) 4 Mg/Ml Inj IV PUSH Q4HR PRN Pain Rated 7-10 Ondansetron HCl 4 mg 10/28/20 04:51 10/28/20 05:37 Ondansetron Inj 4 Mg/2 Ml Vial IV PUSH 4 mg Q4H PRN Administration Nausea Polyethylene Glycol 17 gm 10/29/20 09:00 10/29/20 08:54 Polyethylene Glycol 3350 17 Gm Powd.Pack PO 17 gm DAILY KANDY Administration Senna 8.6 mg 10/28/20 15:57 Sennosides 8.6 Mg Tablet PO BID PRN Constipation Radiology Results: ITS Impressions Chest X-Ray 10/28/20 08:40 IMPRESSION: 1. No acute cardiopulmonary abnormality. Hip/Pelvis X-Ray 10/28/20 08:44 IMPRESSION: 1. Acute subcapital right femoral neck fracture. Head CT 10/28/20 10:14 IMPRESSION: 1. 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 2. Age related findings. Labs Labs: Laboratory Results - last 24 hr 10/29/20 10/29/20 05:17 05:17 WBC 11.3 H RBC 4.79 Hgb 13.8 Hct 42.7 MCV 89.1 MCH 28.8 MCHC 32.3 RDW 12.6 Plt Count 305 MPV
[2020-10-29 20:00] VITALS: BP 125/75; PULSE 106; RESP 18; TEMP 36; O2SAT 96
[2020-10-30] VITALS (8 sets, daily range): BP systolic 110–155; BP diastolic 81–96; PULSE 95–109; RESP 16–18; TEMP 36.1–36.8; O2SAT 95–98
[2020-10-30] MEDS: MORPHINE SULFATE (*CRX) 4 MG/ML INJ 2 MG IV PUSH (02:25)
[2020-10-30] MEDS: polyethylene glycoL 3350 17 GM POWD.PACK PO (09:36)
[2020-10-30] MEDS: MEGESTROL ACETATE (*CHEMO) ORAL SUSP 40 MG/ML SYR 400 MG PO (09:37)
[2020-10-30] MEDS: METOPROLOL SUCCINATE EXT REL 25 MG TABCR PO (09:37)
[2020-10-30] MEDS: ATORVASTATIN 40 MG TABLET 80 MG PO (09:37)
[2020-10-30] MEDS: lisinopriL 5 MG TABLET PO (09:37)
[2020-10-30] MEDS: FLUoxetine HCL 20 MG CAPSULE PO (09:37)
--- NOTE | 2020-10-30 14:36 | PM.IMPN ---
Progress Note: A&P Assessment and Plan (1) Fracture of hip: Qualifiers: Encounter type: initial encounter Fracture type: closed Laterality: right Qualified Code(s): S72.001A - Fracture of unspecified part of neck of right femur, initial encounter for closed fracture Code(s): S72.009A - Fracture of unspecified part of neck of unspecified femur, initial encounter for closed fracture Status: Acute Assessment and Plan: The patient has a history of hemorrhagic stroke and lives at a fpc and is wheelchair bound. She sustained a fall while trying to get up out of her wheelchair and came to the ER for further evaluation. She was found to have an acute subcapital right femoral neck fracture. The patient was seen by the orthopedic surgeon, Lencho, who recommended surgery which will be done 10/31/2020. The patient does have a neurologist at [facility] and she supposed to have a coil placed. We have been in contact with her neurologist who does recommend going through with her hip surgery at this time, recommends holding anticoagulation as needed and following up with him afterwards. Continue p.r.n. pain control Anticoagulants have been placed on hold for now Patient undergo surgery tomorrow morning by ortho Unsure the patient will need PT/OT since she lives at a fpc and is wheelchair bound. Will leave this other ortho Continue monitoring the patient's symptoms. Appreciate orthopedic surgery consultation. (2) Fall: Qualifiers: Encounter type: sequela Qualified Code(s): W19.XXXS - Unspecified fall, sequela Code(s): W19.XXXA - Unspecified fall, initial encounter Status: Inactive Assessment and Plan: See above (3) Cerebral aneurysm: Code(s): I67.1 - Cerebral aneurysm, nonruptured Status: Inactive Assessment and Plan: History of CVA. 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 Age related findings. Continue monitoring symptoms. (4) Hypertension: Qualifiers: Hypertension type: essential hypertension Qualified Code(s): I10 - Essential (primary) hypertension Code(s): I10 - Essential (primary) hypertension Status: Inactive Assessment and Plan: BP 131/96, stable at this time. Continue home lisinopril 5mg PO daily, metoprolol 25mg PO daily Continue monitoring blood pressure. Adjust medications as needed. (5) Hyperlipidemia: Qualifiers: Hyperlipidemia type: unspecified Qualified Code(s): E78.5 - Hyperlipidemia, unspecified Code(s): E78.5 - Hyperlipidemia, unspecified Status: Acute Assessment and Plan: Continue home atorvastatin 80mg PO daily (6) Depression: Qualifiers: Depression Type: unspecified Qualified Code(s): F32.9 - Major depressive disorder, single episode, unspecified Code(s): F32.9 - Major depressive disorder, single episode, unspecified Status: Acute Assessment and Plan: Continue home fluoxetine 20mg PO daily (7) Status post CVA: Code(s): Z86.73 - Personal history of transient ischemic attack (TIA), and cerebral infarction without residual deficits Status: Acute Assessment and Plan: Holding anticoagulation at this time since she is going to have surgery tomorrow. Restart anticoagulation once cleared by ortho The patient is on clopidogrel 75mg PO daily, aspirin 325 PO daily and Lovenox 40 mg in the evening Continue monitoring
--- NOTE | 2020-10-30 15:05 | PM.PNORT ---
Progress Note: A&P Additional Plan No significant changes since yesterday. Patient is responsive today, and slightly verbal. She followed commands and wiggled her toes. No significant edema. Calf nontender. The hip remains flexed. No significant swelling. She wiggles her toes and is more responsive. Plan for surgery Thursday AM. Anticoagulation has been held. Last dose of Lovenox was Thursday evening. Subjective Subjective Date/Time Seen: 10/30/20 15:05 Complains of pain in her hip. She follows commands. HPI limited due to mental status. Review of Systems Review of Systems: Narrative: Review of systems not obtainable due to patient mental status. All systems reviewed & are unremarkable except as noted in HPI and below Exam Narrative: Exam Narrative: Patient is alert and oriented to self. Resting comfortably in bed. No acute distress. No erythema or ecchymosis. No rashes or lesions noted. Warm, normal appearing skin. Tenderness at hip. Lower leg shortened, flexed, and externally rotated. Calf nontender. Distal pulses palpable. Normal capillary refill. Patient able to move and wiggle toes. Light touch sensation intact. Quiñones catheter in place. Const: General: confusion and lethargic Orientation/consciousness: oriented to person Resp: Effort & Inspection: normal respiratory effort Urinary Catheter: Urinary Catheter: patent and draining and urine clear Skin: General skin exam: no rashes or lesions noted Neuro: Other: Poorly follows commands. Capillary refill brisk. Distal light touch sensation intact. Dorsalis pedis pulse palpable. Extrem: Other: No edema. Objective Data Vital Signs Vital Signs: Vital Signs - 24 hr 10/29/20 20:00 10/30/20 00:00 10/30/20 04:00 Temperature 96.8 F L 97.0 F L 98.3 F Pulse Rate 106 H 108 H 97 Respiratory Rate 18 16 18 Blood Pressure 125/75 130/81 155/89 H Pulse Oximetry 96 97 97 10/30/20 08:59 10/30/20 09:37 10/30/20 10:00 Temperature 97.1 F L Pulse Rate 96 109 H Respiratory Rate 18 18 Blood Pressure 131/96 H Pulse Oximetry 96 96 95 Intake/Output Intake/Output: Intake & Output 10/27/20 10/28/20 10/29/20 10/30/20 23:59 23:59 23:59 23:59 Intake Total 480 270 Output Total 200 600 300 Balance -200 -120 -30 Meds/Results Medications: Active Medications Generic Name Dose Route Start Last Admin Trade Name Chon PREdita Reason Stop Dose Admin Acetaminophen 650 mg 10/30/20 18:00 Acetaminophen 325 Mg Tablet PO Q6HR [facility] Aspirin 325 mg 10/29/20 09:00 10/29/20 08:54 Aspirin 325 Mg Tablet PO 325 mg DAILY KANDY Administration Atorvastatin Calcium 80 mg 10/29/20 09:00 10/30/20 09:37 Atorvastatin 40 Mg Tablet PO 80 mg DAILY KANDY Administration Clopidogrel Bisulfate 75 mg 10/29/20 09:00 10/29/20 08:54 Clopidogrel Bisulfate 75 Mg Tablet PO 75 mg DAILY KANDY Administration Sodium Chloride 37.7 ml/ 0 ml 10/31/20 06:00 Morphine Sulfate 2 mg/ INFILTRATE 10/31/20 06:01 Ropivacaine 200 mg/ Ketorolac ONCE ONE Tromethamine 15 mg/ Epinephrine HCl 0.3 mg Ergocalciferol 50,000 unit 10/29/20 09:00 10/29/20 08:54 Ergocalciferol 50,000 Unit Capsule PO 50,000 unit Mo@0900 KANDY Administration Fluoxetine HCl 20 mg 10/29/20 09:00 10/30/20 09:37 Fluoxetine Hcl 20 Mg Capsule PO 20 mg DAILY KANDY Administration Cefazolin Sodium 2 gm in 50 mls @ 100 mls/hr 10/31/20 06:00 Ancef 2 Gm/D5w 50 Ml IVPB 10/31/20 06:29 ONCE ONE Tranexamic Acid/Sodium Chloride 1,000 mg in 100 mls @ 200 mls/hr 10/31/20 06:00 Tranexamic Acid 1,000mg/[id number] IVPB 10/31/20 06:29 ONCE ONE Lactated Ringer's 1,000 mls @ 30 mls/hr 10/31/20 08:00 Lr - Lactated Ringers Iv IV CONT .Q24H [facility] Lisinopril 5 mg 10/29/20 09:00 10/30/20 09:37 Lisinopril 5 Mg Tablet PO 5 mg DAILY KANDY Administration Megestrol Acetate 400 mg 10/29/20 09:00 10/30/20 09:37 Megestrol Acetate (*Chemo) O
[2020-10-30] MEDS: ACETAMINOPHEN 325 MG TABLET 650 MG PO ×2 (18:20→23:54)
[2020-10-30] MEDS: PANTOPRAZOLE SODIUM IV 40 MG VIAL IV PUSH (20:13)
[2020-10-30 21:33] LABS: Add Urine Microscopic? YES; Appearance Urine Cloudy (Clear); Bacteria Urine 4+ /hpf; Bilirubin Urine Negative (Negative); Blood Urine 2+ (Negative); Calcium Oxalate Crystals Urine Present /hpf; Color Urine Yellow (Yellow); Glucose Urine UA Negative (Negative); Ketones Urine Negative (Negative); Leukocyte Esterase Ur 3+ LEU/UL (Negative); Mucus Urine Heavy /lpf; Nitrate Urine Positive (Negative); Protein Urine 1+ mg/dL (Negative); Specific Grav Ur 1.012 (1.001-1.035); WBC Urine >75 /hpf
[2020-10-31] VITALS (18 sets, daily range): BP systolic 87–137; BP diastolic 43–95; PULSE 65–110; RESP 11–22; TEMP 36.2–37.1; O2SAT 94–100
[2020-10-31] MEDS: ACETAMINOPHEN 325 MG TABLET 650 MG PO ×3 (05:24→19:25)
[2020-10-31 05:49] LABS: Hematocrit 41.4 % (37.0-47.0); Hemoglobin 13.4 g/dL (12.0-15.0); Mean Corpuscular HGB Conc 32.4 g/dl (32-36); Mean Corpuscular Hemoglobin 28.4 pg (26-34); Mean Corpuscular Volume 87.7 fl (80-100); Mean Platelet Volume 9.6 fl (7.4-10.4); Platelet Count Result 309 k/mm3 (150-375); Red Blood Count 4.72 M/mm3 (4.2-5.4); Red Cell Distribution Width 12.5 % (11.5-14.5); White Blood Count 12.6 K/mm3 (4.5-10.0)
[2020-10-31 05:59] LABS: INR 1.1; Prothrombin Time 14.6 Seconds (11.1-14.7)
[2020-10-31 06:02] LABS: Anion Gap 10 mmol/L (8-16); Blood Urea Nitrogen 12 mg/dL (7-17); Calcium 9.8 mg/dL (8.4-10.2); Carbon Dioxide 24 mmol/L (22-30); Chloride 103 mmol/L (98-107); Estimated CRCL calculation 76 ml/min; Estimated Glomerular Filt Rate > 60; Glucose 104 mg/dL (65-105); Potassium 4.2 mmol/L (3.4-5.0); Sodium 137 mmol/L (137-145)
--- NOTE | 2020-10-31 07:17 | PC.NURSE ---
PT WENT TO SURGERY AT 0717 TRANSPORTED IN HOSPITAL BED
[2020-10-31] MEDS: TRANEXAMIC ACID 1,000MG/ISO100 1,000 MG/100 ML BAG 200 MG IVPB (07:45)
[2020-10-31] MEDS: LACTATED RINGERS 1,000 ML 30 ML IV CONT ×2 (07:45→11:08)
--- NOTE | 2020-10-31 07:57 | WPDHPUPDATE1 ---
History and Physical Update Update Date/Time: 10/31/20 07:57 History and Physical has been reviewed, including an updated exam of the patient. There are NO changes in the patient's condition. Risks, benefits, and alternatives have been discussed and questions answered. Patient agrees to proceed with procedure.
--- NOTE | 2020-10-31 08:30 | WPDANESEPPF ---
Anes - Initial Pre Proc Eval Procedure: Operation Date: 10/31/20 08:30 Proposed Procedures p Right Bipolar Hip Replacement(Right) - Jerson Musa MD Date/Time: 10/31/20 08:30 Surgeon: Radha Fields PA-C Pre Op Diagnosis: hip fracture Patient Data Age: 65 Gender: F Height: 1.6 m Weight: 69.1 kg Last Vital Signs Temp 97.8 F 10/31/20 07:40 Pulse 102 H 10/31/20 07:40 Resp 22 H 10/31/20 07:40 BP 125/95 H 10/31/20 07:40 Pulse Ox 97 10/31/20 07:40 Allergies Allergy/AdvReac Type Severity Reaction Status Date / Time adhesive tape Allergy Unknown Verified 10/31/20 08:22 Home Medications Medication Instructions Recorded Confirmed Type acetaminophen 650 mg PO Q6H PRN 09/14/20 10/28/20 History aspirin 325 mg PO DAILY 09/14/20 10/28/20 History atorvastatin 80 mg PO DAILY 09/14/20 10/28/20 History clopidogrel 75 mg PO DAILY 09/14/20 10/28/20 History enoxaparin 40 mg SUBCUT HS 09/14/20 10/28/20 History ergocalciferol (vitamin D2) 1,250 mcg PO WEEKLY 09/14/20 10/28/20 History fluoxetine 20 mg PO DAILY 09/14/20 10/28/20 History lidocaine 1 ea TOPICAL DAILY 09/14/20 10/28/20 History lisinopril 5 mg PO DAILY 09/14/20 10/28/20 History metoprolol succinate 25 mg PO DAILY 09/14/20 10/28/20 History polyethylene glycol 3350 [Miralax] 17 g PO DAILY 09/14/20 10/28/20 History sennosides [senna] 8.6 mg PO BID PRN 09/14/20 10/28/20 History megestrol 400 mg PO DAILY 10/24/20 10/28/20 History Laboratory Tests 10/30/20 10/31/20 10/31/20 21:17 05:27 05:27 WBC 12.6 K/mm3 H K/mm3 (4.5-10.0) RBC 4.72 M/mm3 M/mm3 (4.2-5.4) Hgb 13.4 g/dL g/dL (12.0-15.0) Hct 41.4 % % (37.0-47.0) MCV 87.7 fl fl (80-100) MCH 28.4 pg pg (26-34) MCHC 32.4 g/dl g/dl (32-36) RDW 12.5 % % (11.5-14.5) Plt Count 309 k/mm3 k/mm3 (150-375) MPV 9.6 fl fl (7.4-10.4) PT 14.6 Seconds Seconds (11.1-14.7) INR 1.1 APTT 34.0 SECONDS SECONDS (22.3-36.8) Sodium Potassium Chloride Carbon Dioxide Anion Gap BUN Creatinine Estim Creat Clear Calc Estimated GFR Glucose Calcium Urine Color Yellow (Yellow) Urine Appearance Cloudy H (Clear) Urine pH 6.0 (5.0-9.0) Ur Specific [place] 1.012 (1.001-1.035) Urine Protein 1+ mg/dL H mg/dL (Negative) Urine Glucose (UA) Negative mg/dL mg/dL (Negative) Urine Ketones Negative mg/dL mg/dL (Negative) Ur Blood (Man) 2+ H (Negative) Urine Nitrate Positive H (Negative) Urine Bilirubin Negative (Negative) Urine Urobilinogen 4.0 mg/dL H mg/dL (<2.0) Leukocyte Esterase Rfl 3+ TIARA/UL H TIARA/UL (Negative) Urine RBC 11-20 /hpf H /hpf (0-2) Urine WBC >75 /hpf H /hpf Calcium Oxalate Crystal Present /hpf /hpf (None) Urine Bacteria 4+ /hpf H /hpf Hyaline Casts 1-2 /lpf /lpf (None) Urine Mucus Heavy /lpf H /lpf 10/31/20 05:27 WBC RBC Hgb Hct MCV MCH MCHC RDW Plt Count MPV PT INR APTT Sodium 137 mmol/L mmol/L (137-145) Potassium 4.2 mmol/L mmol/L (3.4-5.0) Chloride 103 mmol/L mmol/L (98-107) Carbon Dioxide 24 mmol/L mmol/L (22-30) Anion Gap 10 mmol/L mmol/L (8-16) BUN 12 mg/dL mg/dL (7-17) Creatinine 0.60 mg/dL L mg/dL (0.7-1.0) Estim Creat Clear Calc 76 ml/min ml/min Estimated GFR > 60 (59 - ) Glucose 104 mg/dL mg/dL (65-105) Calcium 9.8 mg/dL mg/dL (8.4-10.2) Urine Color Urine Appearance Urine pH Ur Specific [place] Urine Protein Urin
[2020-10-31] MEDS: ceFAZolin 2 GM/D5W 50 ML 2 GM/50 ML BAG IVPB (09:04)
[2020-10-31] MEDS: fentaNYL CITRATE INJ (*CRX) 100 MCG/2 ML VIAL 25 MCG IV PUSH (12:30)
--- NOTE | 2020-10-31 13:47 | PCOTNOTE ---
Attempted OT evaluation, per RN hold therapy until morning. Will follow and attempt in AM.
--- NOTE | 2020-10-31 14:11 | PCPTNOTE ---
Attempted PT eval. Hold therapy per RN. Will try again tomorrow
[2020-10-31] MEDS: MEGESTROL ACETATE (*CHEMO) ORAL SUSP 40 MG/ML SYR 400 MG PO (14:17)
[2020-10-31] MEDS: FLUoxetine HCL 20 MG CAPSULE PO (14:22)
[2020-10-31] MEDS: METOPROLOL SUCCINATE EXT REL 25 MG TABCR PO (14:22)
[2020-10-31] MEDS: lisinopriL 5 MG TABLET PO (14:22)
[2020-10-31] MEDS: KCL 20 MEQ/D5/0.45% SOD CHL 1,000 ML 80 ML IV CONT (14:34)
--- NOTE | 2020-10-31 14:52 | PM.IMPN ---
Progress Note: A&P Assessment and Plan (1) Fracture of hip: Qualifiers: Encounter type: initial encounter Fracture type: closed Laterality: right Qualified Code(s): S72.001A - Fracture of unspecified part of neck of right femur, initial encounter for closed fracture Code(s): S72.009A - Fracture of unspecified part of neck of unspecified femur, initial encounter for closed fracture Status: Acute Assessment and Plan: The patient has a history of hemorrhagic stroke and lives at a custodial and is wheelchair bound. She sustained a fall while trying to get up out of her wheelchair and came to the ER for further evaluation. She was found to have an acute subcapital right femoral neck fracture. The patient was seen by the orthopedic surgeon, Lencho, who recommended surgery which will be done 10/31/2020. The patient does have a neurologist at [facility] and she supposed to have a coil placed. We have been in contact with her neurologist who does recommend going through with her hip surgery at this time, recommends holding anticoagulation as needed and following up with him afterwards. Continue p.r.n. pain control Patient underwent surgery today by Dr. Musa Anticoagulants have been placed on hold- Will be restarted once recommended by Ortho. Unsure the patient will need PT/OT since she lives at a custodial and is wheelchair bound. Will leave this other ortho Continue monitoring the patient's symptoms. Appreciate orthopedic surgery consultation. (2) Abnormal urinalysis: Code(s): R82.90 - Unspecified abnormal findings in urine Status: Acute Assessment and Plan: Urinalysis was ordered and it is suspicious for a UTI. She was started on IV ceftriaxone while pending urine culture results. (3) Fall: Qualifiers: Encounter type: sequela Qualified Code(s): W19.XXXS - Unspecified fall, sequela Code(s): W19.XXXA - Unspecified fall, initial encounter Status: Inactive Assessment and Plan: See above (4) Cerebral aneurysm: Code(s): I67.1 - Cerebral aneurysm, nonruptured Status: Inactive Assessment and Plan: History of CVA. 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 Age related findings. Continue monitoring symptoms. (5) Hypertension: Qualifiers: Hypertension type: essential hypertension Qualified Code(s): I10 - Essential (primary) hypertension Code(s): I10 - Essential (primary) hypertension Status: Inactive Assessment and Plan: BP 125/95, stable at this time. Continue home lisinopril 5mg PO daily, metoprolol 25mg PO daily Continue monitoring blood pressure. Adjust medications as needed. (6) Hyperlipidemia: Qualifiers: Hyperlipidemia type: unspecified Qualified Code(s): E78.5 - Hyperlipidemia, unspecified Code(s): E78.5 - Hyperlipidemia, unspecified Status: Acute Assessment and Plan: Continue home atorvastatin 80mg PO daily (7) Depression: Qualifiers: Depression Type: unspecified Qualified Code(s): F32.9 - Major depressive disorder, single episode, unspecified Code(s): F32.9 - Major depressive disorder, single episode, unspecified Status: Acute Assessment and Plan: Continue home fluoxetine 20mg PO daily (8) Status post CVA: Code(s): Z86.73 - Personal history of transient ischemic attack (TIA), and cerebral infarction without resi
[2020-10-31] MEDS: DOCUSATE SODIUM 100 MG CAPSULE PO (16:20)
--- NOTE | 2020-10-31 16:22 | P.OP_ITS ---
Procedure Note - Detailed Date of Procedure 10/31/20 Pre-op Diagnosis Right hip displaced femoral neck fracture. Post-op Diagnosis same Procedure Performed Bipolar hemiarthroplasty, right hip. Surgeon Jerson Musa MD [employer] Kecia Gonzales PA-C Anesthesia general Findings Moderate osteoporosis. Distal canal reaming performed to optimize proximal fit and fill. Description of Procedure Physician coding assistant, Kecia Gonzales PA-C, required for surgery; including patient positioning, draping, tissue retraction, maintaining instrument position, wound closure, and dressing placement. A general anesthetic was administered. The patient was carefully placed in the lateral decubitus position on the peg board positioner. An axillary roll was placed. The hip was prepped and draped in the usual sterile fashion. A minimally invasive optimized posterior approach to the hip was performed. An L shaped capsulotomy was created along the upper border of the piriformis. The short external rotators were tagged with number 2 high strength suture for later repair. The labrum was preserved. The femoral neck cut was performed. The femoral head was removed and sized. The acetabular floor was cleared of debris and loose tissue. The femur was sequentially reamed and broached. Flexible reaming was performed to open up the distal canal to optimize the proximal fit of the stem. Trial was assessed for leg length and stability. The real component was impacted into position, trialed again, and the final head and bipolar component were assembled. The hip was reduced after copious irrigation. The short external rotators and capsule were repaired through drill holes in the posterior trochanter. The wound was closed in layers with 1 vicryl, 2,0, and 2-0 running barbed suture. Adhesive tapes were placed on the skin, followed by a sterile gauze dressing. The patient was extubated and brought to the recovery room. Implants Isac accolade hip fracture stem. bipolar femoral head component. Estimated Blood Loss -250.0 Urine Output -100.0 Drains No Packing No Pathology none sent Complications No immediate complications Condition stable Disposition PACU
[2020-10-31] MEDS: PANTOPRAZOLE SODIUM IV 40 MG VIAL IV PUSH (21:49)
[2020-11-01] MEDS: ACETAMINOPHEN 325 MG TABLET 650 MG PO ×4 (00:50→17:43)
[2020-11-01 02:50] VITALS: BP 108/73; PULSE 83; RESP 16; TEMP 36.5; O2SAT 98
[2020-11-01] MEDS: MORPHINE SULFATE (*CRX) 4 MG/ML INJ 2 MG IV PUSH (04:46)
[2020-11-01] MEDS: KCL 20 MEQ/D5/0.45% SOD CHL 1,000 ML 80 ML IV CONT (04:50)
[2020-11-01 05:43] LABS: Basophils Percent Auto 0.3 % (0.2-1.2); Eosinophils Absolute Auto 0.1 K/mm3 (0-0.3); Eosinophils Percent Auto 0.4 % (0-4.4); Hemoglobin 10.7 g/dL (12.0-15.0); Immature Granulocyte Absolute 0.06 K/mm3 (0.00-0.031); Immature Granulocyte Percent A 0.5 % (0-0.5); Lymphocytes Absolute Auto 1.85 K/mm3 (0.9-3.2); Lymphocytes Percent Auto 15.9 % (18.3-44.2); Mean Corpuscular HGB Conc 32.4 g/dl (32-36); Mean Corpuscular Hemoglobin 28.3 pg (26-34); Mean Corpuscular Volume 87.3 fl (80-100); Mean Platelet Volume 9.8 fl (7.4-10.4); Monocytes Percent Auto 8.8 % (2.6-8.5); Neutrophils Absolute Auto 8.6 K/mm3 (1.3-6.7); Neutrophils Percent Auto 74.1 % (45.5-73.1); Platelet Count Result 283 k/mm3 (150-375); Red Blood Count 3.78 M/mm3 (4.2-5.4); Red Cell Distribution Width 12.5 % (11.5-14.5); White Blood Count 11.6 K/mm3 (4.5-10.0)
[2020-11-01 05:56] LABS: Anion Gap 4 mmol/L (8-16); Blood Urea Nitrogen 10 mg/dL (7-17); Calcium 9.1 mg/dL (8.4-10.2); Carbon Dioxide 27 mmol/L (22-30); Chloride 106 mmol/L (98-107); Estimated CRCL calculation 66 ml/min; Estimated Glomerular Filt Rate > 60; Glucose 100 mg/dL (65-105); Potassium 4.2 mmol/L (3.4-5.0); Sodium 137 mmol/L (137-145)
[2020-11-01 06:17] VITALS: BP 107/73; PULSE 90; RESP 16; TEMP 36.6; O2SAT 98
[2020-11-01 08:28] VITALS: BP 123/83
[2020-11-01] MEDS: polyethylene glycoL 3350 17 GM POWD.PACK PO (08:30)
[2020-11-01] MEDS: DOCUSATE SODIUM 100 MG CAPSULE PO ×2 (08:31→17:43)
[2020-11-01] MEDS: ATORVASTATIN 40 MG TABLET 80 MG PO (08:31)
[2020-11-01 08:32] VITALS: PULSE 74
[2020-11-01] MEDS: MEGESTROL ACETATE (*CHEMO) ORAL SUSP 40 MG/ML SYR 400 MG PO (08:32)
[2020-11-01] MEDS: lisinopriL 5 MG TABLET PO (08:32)
[2020-11-01] MEDS: METOPROLOL SUCCINATE EXT REL 25 MG TABCR PO (08:32)
[2020-11-01] MEDS: FLUoxetine HCL 20 MG CAPSULE PO (08:32)
[2020-11-01] MEDS: ENOXAPARIN 40 MG/0.4 ML SYRINGE SUB-Q (08:32)
[2020-11-01] MEDS: PANTOPRAZOLE SODIUM IV 40 MG VIAL IV PUSH ×2 (08:33→21:26)
--- NOTE | 2020-11-01 08:53 | WPDANESPN ---
Anes - Prog Note Post-Op Date/Time: 11/01/20 08:53 Cardiovascular status: normal Respiratory status: normal Airway patency: baseline Mental status: baseline Post-Op hydration status: normal Vital Signs: Last Vital Signs Temp 36.6 C 11/01/20 06:17 Pulse 74 11/01/20 08:32 Resp 16 11/01/20 06:17 BP 123/83 11/01/20 08:28 Pulse Ox 98 11/01/20 06:17 Pain Score (VAS): 0/10. Patient resting in bed at time of assessment, appears comfortable. I/O: Intake & Output 10/31/20 11/01/20 11/01/20 23:59 07:59 15:59 Intake Total 410 1150 Output Total 240 1250 Balance 170 -100 Laboratory Tests 11/01/20 05:28 11/01/20 05:28 11/01/20 11/01/20 05:28 05:28 WBC 11.6 H RBC 3.78 L Hgb 10.7 L Hct 33.0 L MCV 87.3 MCH 28.3 MCHC 32.4 RDW 12.5 Plt Count 283 MPV 9.8 Immature Gran % (Auto) 0.5 Neut % (Auto) 74.1 H Lymph % (Auto) 15.9 L [place] % (Auto) 8.8 H Eos % (Auto) 0.4 Baso % (Auto) 0.3 Lymph # (Auto) 1.85 [place] # (Auto) 1.0 H Eos # (Auto) 0.1 Baso # (Auto) 0.0 Abs Immat Gran (auto) 0.06 H Absolute Neuts (auto) 8.6 H Absolute Nucleated RBC 0.0 Nucleated RBC % 0.0 Sodium 137 Potassium 4.2 Chloride 106 Carbon Dioxide 27 Anion Gap 4 L BUN 10 Creatinine 0.70 Estim Creat Clear Calc 66 Estimated GFR > 60 Glucose 100 Calcium 9.1 Microbiology 10/30/20 21:17 Urine [place] Urine Culture - Final Escherichia Coli Post-procedural complaints: none Patient Feedback: Patient satisfied with anesthetic care.
--- NOTE | 2020-11-01 09:04 | PM.IMPN ---
Progress Note: A&P Assessment and Plan (1) E. coli UTI: Code(s): N39.0 - Urinary tract infection, site not specified; B96.20 - Unspecified Escherichia coli [E. coli] as the cause of diseases classified elsewhere Status: Acute Assessment and Plan: Urinalysis was ordered and found to have E. coli UTI with sensitivity to Ceftriaxone. Continue IV ceftriaxone , discharge on Augmentin once discharged. (2) Fracture of hip: Qualifiers: Encounter type: initial encounter Fracture type: closed Laterality: right Qualified Code(s): S72.001A - Fracture of unspecified part of neck of right femur, initial encounter for closed fracture Code(s): S72.009A - Fracture of unspecified part of neck of unspecified femur, initial encounter for closed fracture Status: Acute Assessment and Plan: The patient has a history of hemorrhagic stroke and lives at a assisted and is wheelchair bound. She sustained a fall while trying to get up out of her wheelchair and came to the ER for further evaluation. She was found to have an acute subcapital right femoral neck fracture. The patient was seen by the orthopedic surgeon, Lencho, who recommended surgery which will be done 10/31/2020. The patient does have a neurologist at [facility] and she supposed to have a coil placed. We have been in contact with her neurologist who does recommend going through with her hip surgery at this time, recommends holding anticoagulation as needed and following up with him afterwards. Continue p.r.n. pain control Patient underwent surgery 10/31/[address] Musa bipolar hemiarthroplasty, right hip. Will talk to Ortho about restarting the patients anticoagulation- Aspirin, Plavix PT/OT have been ordered Continue monitoring the patient's symptoms. Appreciate orthopedic surgery consultation. (3) Fall: Qualifiers: Encounter type: sequela Qualified Code(s): W19.XXXS - Unspecified fall, sequela Code(s): W19.XXXA - Unspecified fall, initial encounter Status: Inactive Assessment and Plan: See above (4) Cerebral aneurysm: Code(s): I67.1 - Cerebral aneurysm, nonruptured Status: Inactive Assessment and Plan: History of CVA. 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 Age related findings. Continue monitoring symptoms. (5) Hypertension: Qualifiers: Hypertension type: essential hypertension Qualified Code(s): I10 - Essential (primary) hypertension Code(s): I10 - Essential (primary) hypertension Status: Inactive Assessment and Plan: BP 107/73, stable at this time. Continue home lisinopril 5mg PO daily, metoprolol 25mg PO daily Continue monitoring blood pressure. Adjust medications as needed. (6) Hyperlipidemia: Qualifiers: Hyperlipidemia type: unspecified Qualified Code(s): E78.5 - Hyperlipidemia, unspecified Code(s): E78.5 - Hyperlipidemia, unspecified Status: Acute Assessment and Plan: Continue home atorvastatin 80mg PO daily (7) Depression: Qualifiers: Depression Type: unspecified Qualified Code(s): F32.9 - Major depressive disorder, single episode, unspecified Code(s): F32.9 - Major depressive disorder, single episode, unspecified Status: Acute Assessment and Plan: Continue home fluoxetine 20mg PO daily (8) Status post CVA: Code(s): Z86.73 - Personal history of transient isch
[2020-11-01 10:50] VITALS: BP 118/100; PULSE 104; RESP 18; TEMP 35.6; O2SAT 99
--- NOTE | 2020-11-01 11:41 | PCNFU ---
Nutrition Follow-Up Complete: Nutrition Diagnosis: Inadequate oral intake related to dementia as evidenced by patient consuming 20% of her meal and needing reminders to eat. Nutrition Goal; Have patient meet estimated nutritional needs. Goal is in progress, patient is consuming 50-75% of her meals. Nutrition recommendation: Continue with Heart Healthy, Soft and Bite Sized Level 6 diet and the Ensure compact (220 calories and 9 grams of protein) supplement BID. Last recorded weight is 69.1 kg. Recommend obtaining new weight. Bowel Motility: Patient has not had a bowel movement, but Miralax has been added to help with the issue. Labs Reviewed: Hgb(10.7), Hct(33.0) Meds Noted: Lipitor, Plavix, Lovenox, Drisdol, Prozac, Prinivil, Megace, Zofran, Miralax, Protonix, Narcan, Colace, Metoprolol, Magnesium Hydroxide Additional Notes: Patient has a wound on right hip from post-surgery and bruises on right hip and right foot. Agree with diet orders. Will follow up in 5 days.
--- NOTE | 2020-11-01 13:01 | PCNSR ---
On 11/01/20, the student, Ingrid Ontiveros, provided care and completed [facility] documentation on this patient. I have reviewed the student's documentation and agree with the findings.
--- NOTE | 2020-11-01 16:03 | PM.PNORT ---
Progress Note: A&P Assessment and Plan (1) Fracture of hip: Qualifiers: Encounter type: initial encounter Fracture type: closed Laterality: right Qualified Code(s): S72.001A - Fracture of unspecified part of neck of right femur, initial encounter for closed fracture Code(s): S72.009A - Fracture of unspecified part of neck of unspecified femur, initial encounter for closed fracture Status: Acute Assessment and Plan: POD #1 Right Bipolar hip hemiarthroplasty. Patient progressing well. Having some issues with pain control. Changed pain medications. Patient follows commands. Continue PT. Plan to discharge to SNF/Rehab when medically cleared and pain is controlled, likely a few more days. Subjective Subjective Date/Time Seen: 11/01/20 16:03 POD#1 Right Bipolar hip hemiarthroplasty. Complains of pain in her hip. She follows commands. HPI limited due to mental status. Review of Systems Review of Systems: ROS unobtainable: Yes unobtainable due to medical condition (Hemorrhagic stroke ) Exam Narrative: Exam Narrative: 65 y/o female Resting comfortably in bed. Follows commands. Confused. No distress. Dressing dry and intact with no drainage. Moderate swelling. No ecchymosis. No erythema. No hematoma. Range of motion limited due to pain. Calf nontender. Thigh nontender. Neurologic status intact. No varicosities. Distal pulses palpable. Wiggles toes. Objective Data Vital Signs Vital Signs: Vital Signs - 24 hr 10/31/20 18:00 10/31/20 21:27 10/31/20 23:40 Temperature 98.7 F 97.9 F Pulse Rate 92 85 Respiratory Rate 18 16 Blood Pressure 110/74 99/70 L Pulse Oximetry 95 98 95 11/01/20 02:50 11/01/20 06:17 11/01/20 08:28 Temperature 97.7 F 97.9 F Pulse Rate 83 90 Respiratory Rate 16 16 Blood Pressure 108/73 107/73 123/83 Pulse Oximetry 98 98 11/01/20 08:32 11/01/20 10:50 Temperature 96.0 F L Pulse Rate 74 104 H Respiratory Rate 18 Blood Pressure 118/100 H Pulse Oximetry 99 Intake/Output Intake/Output: Intake & Output 10/29/20 10/30/20 10/31/20 11/01/20 23:59 23:59 23:59 23:59 Intake Total 480 727 992 3653 Output Total 600 871 091 5309 Balance -120 130 -377 655 Meds/Results Medications: Active Medications Generic Name Dose Route Start Last Admin Trade Name Chon PRN Reason Stop Dose Admin Acetaminophen 650 mg 10/30/20 18:00 11/01/20 11:52 Acetaminophen 325 Mg Tablet PO 650 mg Q6HR KANDY Administration Atorvastatin Calcium 80 mg 10/29/20 09:00 11/01/20 08:31 Atorvastatin 40 Mg Tablet PO 80 mg DAILY KANDY Administration Clopidogrel Bisulfate 75 mg 10/29/20 09:00 10/29/20 08:54 Clopidogrel Bisulfate 75 Mg Tablet PO 75 mg DAILY KANDY Administration Docusate Sodium 100 mg 10/31/20 17:00 11/01/20 08:31 Docusate Sodium 100 Mg Capsule PO 100 mg BID KANDY Administration Enoxaparin Sodium 40 mg 11/01/20 09:00 11/01/20 08:32 Enoxaparin 40 Mg/0.4 Ml Syringe SUB-Q 40 mg DAILY KANDY Administration Ergocalciferol 50,000 unit 10/29/20 09:00 10/29/20 08:54 Ergocalciferol 50,000 Unit Capsule PO 50,000 unit Mo@0900 KANDY Administration Fluoxetine HCl 20 mg 10/29/20 09:00 11/01/20 08:32 Fluoxetine Hcl 20 Mg Capsule PO 20 mg DAILY KANDY Administration Ceftriaxone Sodium/Dextrose 1 gm in 50 mls @ 100 mls/hr 10/31/20 09:00 11/01/20 10:46 Rocephin 1 Gm/D5w 50 Ml IVPB Infused Q24H KANDY Infusion Lisinopril 5 mg 10/29/20 09:00 11/01/20 08:32 Lisinopril 5 Mg Tablet PO 5 mg DAILY KANDY Administration Magnesium Hydroxide 30 ml 10/31/20 13:05 Magnesium Hydroxide Susp 30 Ml Udc PO BID PRN Constipation Megestrol Acetate 400 mg 10/29/20 09:00 11/01/20 08:32 Megestrol Acetate (*Chemo) Oral Susp 40 Mg/Ml Syr PO 400 mg DAILY KANDY Administration Metoprolol Succinate 25 mg 10/29/20 09:00 11/01/20 08:32 Metoprolol Succinate Ext Rel 25 Mg Tabcr PO 25 mg DAILY
[2020-11-01] MEDS: oxyCODONE HCL (*CRX) 5 MG TAB IR PO (17:43)
[2020-11-01 20:56] VITALS: BP 110/82; PULSE 100; RESP 16; TEMP 36.9; O2SAT 97
[2020-11-02] MEDS: ACETAMINOPHEN 325 MG TABLET 650 MG PO ×4 (00:28→17:43)
[2020-11-02 01:06] VITALS: BP 120/87; PULSE 91; RESP 16; TEMP 36.4; O2SAT 99
[2020-11-02 05:59] VITALS: BP 117/75; PULSE 91; RESP 16; TEMP 36.4; O2SAT 98
[2020-11-02] MEDS: oxyCODONE HCL (*CRX) 5 MG TAB IR PO (07:10)
[2020-11-02 08:37] VITALS: PULSE 90
[2020-11-02] MEDS: ATORVASTATIN 40 MG TABLET 80 MG PO (08:37)
[2020-11-02] MEDS: METOPROLOL SUCCINATE EXT REL 25 MG TABCR PO (08:37)
[2020-11-02] MEDS: DOCUSATE SODIUM 100 MG CAPSULE PO ×2 (08:37→17:43)
[2020-11-02] MEDS: FLUoxetine HCL 20 MG CAPSULE PO (08:37)
[2020-11-02] MEDS: lisinopriL 5 MG TABLET PO (08:37)
[2020-11-02] MEDS: CLOPIDOGREL BISULFATE 75 MG TABLET PO (08:38)
[2020-11-02] MEDS: ENOXAPARIN 40 MG/0.4 ML SYRINGE SUB-Q (08:38)
[2020-11-02] MEDS: MEGESTROL ACETATE (*CHEMO) ORAL SUSP 40 MG/ML SYR 400 MG PO (08:38)
[2020-11-02] MEDS: PANTOPRAZOLE SODIUM IV 40 MG VIAL IV PUSH (08:39)
[2020-11-02] MEDS: polyethylene glycoL 3350 17 GM POWD.PACK PO (08:39)
[2020-11-02 09:53] VITALS: BP 113/78; PULSE 100; RESP 18; TEMP 36.4; O2SAT 99
--- NOTE | 2020-11-02 13:53 | PCSTNOTE ---
Please refer to the Bedside Swallow Evaluation in the EMR. Please note, silent aspiration cannot be ruled out at bedside.
--- NOTE | 2020-11-02 13:53 | PM.PNORT ---
Progress Note: A&P Assessment and Plan (1) Fracture of hip: Qualifiers: Encounter type: initial encounter Fracture type: closed Laterality: right Qualified Code(s): S72.001A - Fracture of unspecified part of neck of right femur, initial encounter for closed fracture Code(s): S72.009A - Fracture of unspecified part of neck of unspecified femur, initial encounter for closed fracture Status: Acute Assessment and Plan: POD #2 Right Bipolar hip hemiarthroplasty. Patient progressing well. Pain controlled. Patient follows commands. Continue PT. Plan to discharge to SNF/Rehab when medically cleared. Pain is controlled. Ortho instructions: D/C to SNF/rehab Xray in 2 weeks, call office when complete. f/u in office in 4-6 weeks with xray prior to visit. Wound Care: Hip: Remove Mepilex dressing at 7 days post op. Remove steristrips at 14 days post op. Surgery 10/31/20. May shower. No soaking. PT: WBAT left leg with walker. Pain medication: Percocet Subjective Subjective Date/Time Seen: 11/02/20 13:53 POD#2 Right Bipolar hip hemiarthroplasty. Denies pain in her hip. She follows commands. HPI limited due to mental status. Seems more alert today. Review of Systems Review of Systems: ROS unobtainable: Yes unobtainable due to medical condition (Hemorrhagic stroke ) Exam Narrative: Exam Narrative: 65 y/o female Resting comfortably in bed. Follows commands. Confused. No distress. Dressing dry and intact with no drainage. Moderate swelling. No ecchymosis. No erythema. No hematoma. Range of motion limited due to pain. Calf nontender. Thigh nontender. Neurologic status intact. No varicosities. Distal pulses palpable. Wiggles toes. Objective Data Vital Signs Vital Signs: Vital Signs - 24 hr 11/01/20 20:56 11/02/20 01:06 11/02/20 05:59 Temperature 98.4 F 97.6 F 97.6 F Pulse Rate 100 91 91 Respiratory Rate 16 16 16 Blood Pressure 110/82 120/87 117/75 Pulse Oximetry 97 99 98 11/02/20 08:37 11/02/20 09:53 Temperature 97.5 F L Pulse Rate 90 100 Respiratory Rate 18 Blood Pressure 113/78 Pulse Oximetry 99 Intake/Output Intake/Output: Intake & Output 06/22/21 06/23/21 06/24/21 06/25/21 23:59 23:59 23:59 23:59 Intake Total 146 740 4573 270 Output Total 914 304 7627 Balance 130 -270 1465 270 Meds/Results Medications: Active Medications Generic Name Dose Route Start Last Admin Trade Name Freq PRN Reason Stop Dose Admin Acetaminophen 650 mg 10/30/20 18:00 11/02/20 12:17 Acetaminophen 325 Mg Tablet PO 650 mg Q6HR KANDY Administration Atorvastatin Calcium 80 mg 10/29/20 09:00 11/02/20 08:37 Atorvastatin 40 Mg Tablet PO 80 mg DAILY KANDY Administration Clopidogrel Bisulfate 75 mg 10/29/20 09:00 11/02/20 08:38 Clopidogrel Bisulfate 75 Mg Tablet PO 75 mg DAILY KANDY Administration Docusate Sodium 100 mg 10/31/20 17:00 11/02/20 08:37 Docusate Sodium 100 Mg Capsule PO 100 mg BID KANDY Administration Enoxaparin Sodium 40 mg 11/01/20 09:00 11/02/20 08:38 Enoxaparin 40 Mg/0.4 Ml Syringe SUB-Q 40 mg DAILY KANDY Administration Ergocalciferol 50,000 unit 10/29/20 09:00 10/29/20 08:54 Ergocalciferol 50,000 Unit Capsule PO 50,000 unit Mo@0900 KANDY Administration Fluoxetine HCl 20 mg 10/29/20 09:00 11/02/20 08:37 Fluoxetine Hcl 20 Mg Capsule PO 20 mg DAILY KANDY Administration Ceftriaxone Sodium/Dextrose 1 gm in 50 mls @ 100 mls/hr 10/31/20 09:00 11/02/20 09:10 Rocephin 1 Gm/D5w 50 Ml IVPB Infused Q24H KANDY Infusion Lisinopril 5 mg 10/29/20 09:00 11/02/20 08:37 Lisinopril 5 Mg Tablet PO 5 mg DAILY KANDY Administration Magnesium Hydroxide 30 ml 10/31/20 13:05 Magnesium Hydroxide Susp 30 Ml Udc PO BID PRN Constipation Megestrol Acetate 400 mg 10/29/20 09:00 11/02/20 08:38 Megestrol Acetate (*Chemo) Oral Susp 40 Mg/Ml Syr PO 400 mg DAILY KANDY Administration Metoprol
[2020-11-02 14:00] VITALS: BP 117/79; PULSE 84; RESP 16; TEMP 36.6; O2SAT 98
--- NOTE | 2020-11-02 14:33 | PM.DS ---
DS: Admitting Diagnosis Admitting Diagnosis Admitting Diagnosis: Fall hip pain DS: Discharge Diagnosis Discharge Diagnosis (1) Fracture of hip: Qualifiers: Encounter type: initial encounter Fracture type: closed Laterality: right Qualified Code(s): S72.001A - Fracture of unspecified part of neck of right femur, initial encounter for closed fracture Code(s): S72.009A - Fracture of unspecified part of neck of unspecified femur, initial encounter for closed fracture Status: Acute Assessment and Plan: The patient is a 65 year old woman with a history of hemorrhagic stroke and lives at a longterm and is wheelchair bound, who presented to the ER after sustaining a fall while trying to get up out of her wheelchair and came to the ER for further evaluation of hip pain. She was found to have an acute subcapital right femoral neck fracture. The patient was seen by the orthopedic surgeon, Lencho, who recommended surgery which will be done 10/31/2020. The patient does have a neurologist at [facility] and she supposed to have a coil placed. We have been in contact with her neurologist who does recommend going through with her hip surgery at this time, recommends holding anticoagulation as needed and following up with him afterwards. Patient underwent surgery 10/31/[address] Musa bipolar hemiarthroplasty, right hip. Patient was also found to have a urinary tract infection, E. coli with treatment with antibiotics. the patient was stable after her surgery and she had plans to be discharged back to her longterm to continue with physical and occupational therapy. I talked to your interventional neuro surgery team who recommended continuing Lovenox for DVT prophylaxis and full-dose aspirin 325 mg. They are going to wait to do the procedure until your hip is more recovered. Prior to surgery for her coil placement, they will reach out about restarting the Plavix 2 weeks prior to procedure date. I discussed this with the patient's son who understands and agrees with the plan all questions answered. (2) E. coli UTI: Code(s): N39.0 - Urinary tract infection, site not specified; B96.20 - Unspecified Escherichia coli [E. coli] as the cause of diseases classified elsewhere Status: Acute Assessment and Plan: Urinalysis was ordered and found to have E. coli UTI with sensitivity to Ceftriaxone. Continue IV ceftriaxone , discharge on Augmentin for 5 more days of treatment and Florastor probiotic. (3) Fall: Qualifiers: Encounter type: sequela Qualified Code(s): W19.XXXS - Unspecified fall, sequela Code(s): W19.XXXA - Unspecified fall, initial encounter Status: Inactive Assessment and Plan: Most likely due to UTI See above (4) Cerebral aneurysm: Code(s): I67.1 - Cerebral aneurysm, nonruptured Status: Inactive Assessment and Plan: History of CVA. Supposed to have coil placed at [place] [facility] CT showed Unchanged giant basilar tip aneurysm without acute intracranial abnormality, sensitivity for hemorrhage somewhat limited by streak artifact. Age related findings. Follow up as scheduled with [facility] for coil placement (5) Hypertension: Qualifiers: Hypertension type: essential hypertension Qualified Code(s): I10 - Essential (primary) hypertension Code(s): I10 - Essential (primary) hypertension Status: Inactive Assessment and Plan: BP 117/79, stable at this time. Continue home lisinopril 5mg PO daily, metoprolol 25mg PO daily (6) Hyperlipidemia: Qualifiers: Hyperlipidemia type: unspecified Qualified Code(s): E78.5 - Hyperlipidemia, unspecified Code(s
--- NOTE | 2020-11-02 15:10 | PC.NURSE ---
Report given to IRVING Cisneros at [facility]. All questions were answered. Waiting for EMS to arrive.
== END 2020-11-02 20:10 | DRG 301 ==
LOC: ANHED 05:49 → ANH2MED 05:53
PROVIDERS: Nurse Practitioner; Orthopaedic Surgery; Admitting Provider Internal Medicine; Emergency Provider Emergency Medicine; PCP Internal Medicine; Visit Provider Physician Assistant
PROC: 0SRR0JZ Replacement of Right Hip Joint, Femoral Surface with Synthetic Substitute, Open Approach (ICD-10-PCS; CPT 27125; principal; 2020-10-31 08:30)
DX: S72.011A Unspecified intracapsular fracture of right femur, initial encounter for closed fracture (principal); W19.XXXA Unspecified fall, initial encounter; I67.1 Cerebral aneurysm, nonruptured; N39.0 Urinary tract infection, site not specified; B96.20 Unspecified Escherichia coli [E. coli] as the cause of diseases classified elsewhere; H26.9 Unspecified cataract; I10 Essential (primary) hypertension; E78.5 Hyperlipidemia, unspecified; M81.0 Age-related osteoporosis without current pathological fracture; F32.9 Major depressive disorder, single episode, unspecified; Z66 Do not resuscitate; Z79.82 Long term (current) use of aspirin; Z79.899 Other long term (current) drug therapy; Z86.73 Personal history of transient ischemic attack (TIA), and cerebral infarction without residual deficits; Z99.3 Dependence on wheelchair
CPT/HCPCS: 36415; 70450; 71045; 73502; 80048; 80053; 81001; 85025; 85027; 85610; 85730; 86850; 86900; 86901; 87077; 87086; 87088; 87186; 92610; 93005; 96374; 97110; 97161; 97166; 97530; 99285; A9270; C1713; C1776; C9113; G0378; G0379; J0171; J0330; J0690; J0696; J1100; J1170; J1650; J1885; J2270; J2370; J2405; J2704; J2795; J3010; J3480; J7030; J7120

== ENCOUNTER 2021-01-03 17:35 | Emergency (ER) | payer OTHER, SELFPAY ==
[2021-01-03] VITALS (13 sets, daily range): BP systolic 106–122; BP diastolic 73–93; PULSE 81–97; RESP 16–21; TEMP 36.7–36.8; O2SAT 98–100
--- NOTE | ~2021-01-03 | CT_ITS ---
EXAMINATION: CT brain wo con DATE: 01/03/2021 18:42 INDICATION: Fall. History of cerebrovascular accident. TECHNIQUE: Computed tomography (CT) of the head was performed without intravenous contrast. The mA wa s adjusted according to patient size. Iterative reconstruction technique was employed. Exam dose: 83 2.33 mGy-cm total exam DLP. COMPARISON: 09/14/2020 CT brain carotid 09/14/2020, 09/23/2020 CT brain examinations FINDINGS: There is motion, with associated marginal artifact, limiting evaluation. Examination for li mited by the extensive streak artifact from embolization coils 4 reported giant aneurysm. There is interval diminished attenuation in the left basal ganglia consistent with subacute cerebrova scular accident. There is mass effect probably due to edema in the left thalamic area with some focal rightward shift of the midline structures. No acute intracranial hemorrhage is noted. Chronic left basal ganglia lacunar infarcts. Diminished attenuation of the cerebral white matter, likely due to chronic small vessel ischemic mallory ges. No fracture or bone destruction of the cranial vault is evident. IMPRESSION: Interval subacute cerebrovascular accident of left basal ganglia including thalamic area , with edema, focal rightward shift of the midline. No intracranial hemorrhage is evident Chronic left basal ganglia lacunar infarcts Diminished attenuation cerebral white matter, likely due to chronic small vessel ischemic changes. Reviewed, dictated and finalized at [facility]. Reviewed, dictated and finalized at [facility]. IMPRESSION: Interval subacute cerebrovascular accident of left basal ganglia i ncluding thalamic area, with edema, focal rightward shift of the midline. No in tracranial hemorrhage is evident Chronic left basal ganglia lacunar infarcts Diminished attenuation cerebral white matter, likely due to chronic small vesse l ischemic changes.
--- NOTE | 2021-01-03 18:13 | PC.NURSE ---
Unable to obtain history from patient, nonverbal. Contacted NH and information obtained-she is normally nonverbal, will sometimes answer with yes/no responses. Nurse states that pt was found on her knees in front of the stool in the BR. Scattered old bruising noted to arms and legs. No obvious injuries. Information given to Dr. Herring.
--- NOTE | 2021-01-03 18:33 | ED.FALL ---
HPI - Fall General Chief Complaint: Fall Stated Complaint: ? FALL Time Seen by Provider: 01/03/21 18:02 History of Present Illness HPI Narrative: 65 yo female w/ h/o dementia, CVA presents from correction after a presumed fall. She was apparently found on her knees in front of the toilet. She has severe dementia and is not able to provide any history. Her sone says that she has had multiple strokes recently and has a steep decline in function. She has an advanced directive specifying Comfort focused care and DNR. Related Data Home Medications Medication Instructions Recorded Confirmed acetaminophen 650 mg PO Q6H PRN 09/14/20 10/28/20 aspirin 325 mg PO DAILY 09/14/20 10/28/20 atorvastatin 80 mg PO DAILY 09/14/20 10/28/20 enoxaparin 40 mg SUBCUT HS 09/14/20 10/28/20 ergocalciferol (vitamin D2) 1,250 mcg PO WEEKLY 09/14/20 10/28/20 fluoxetine 20 mg PO DAILY 09/14/20 10/28/20 lidocaine 1 ea TOPICAL DAILY 09/14/20 10/28/20 lisinopril 5 mg PO DAILY 09/14/20 10/28/20 metoprolol succinate 25 mg PO DAILY 09/14/20 10/28/20 polyethylene glycol 3350 [Miralax] 17 g PO DAILY 09/14/20 10/28/20 sennosides [senna] 8.6 mg PO BID PRN 09/14/20 10/28/20 megestrol 400 mg PO DAILY 10/24/20 10/28/20 Allergies Allergy/AdvReac Type Severity Reaction Status Date / Time adhesive tape Allergy Unknown Verified 01/03/21 18:28 Review of Systems Review of Systems: ROS unobtainable: Yes unobtainable due to mental status PMFSH Past Medical History Medical History Cataract Cerebral aneurysm Constipation CVA (cerebral vascular accident) Depression Hyperlipidemia Hypertension Proximal humerus fracture Status post CVA Surgical History Surgical History S/P clamping of cerebral aneurysm Family History Family History Other Unknown family medical history Social History Social History Social History: According to the chart patient is a DNR and her POA is Nick Bermudez. Patient lives at [facility]. Smoking status: Unknown if ever smoked Alcohol intake: unknown Alcohol use details: rarel Substance use: unknown Substance use type: does not use Gender identity (if verbalized by the patient): Female Spiritual care concerns: No Exam Const: General: no acute distress and alert HENMT: Head: normal to inspection, no contusions and no lacerations Eyes: Pupils: Equal, round and reactive pupils present Neck: Neck: normal visual inspection Resp: Effort & Inspection: normal respiratory effort Auscultation: clear to auscultation bilaterally Cardio: Rate: regular rate Rhythm: regular rhythm GI: Inspection: non-distended Skin: Other: old bruises to lower legs bilaterally Neuro: Other: Appears alert, but not interacting. Exam severely limited Extrem: General: normal to inspection Course Vital Signs Vital signs: Vital Signs Temperature 36.7 C 01/03/21 17:45 Pulse Rate 95 01/03/21 17:45 Respiratory Rate 16 01/03/21 17:45 Blood Pressure 121/90 01/03/21 17:45 Pulse Oximetry 100 01/03/21 17:45 Temperature 36.7 C 01/03/21 17:45 Pulse Rate 97 01/03/21 18:17 Respiratory Rate 19 01/03/21 18:17 Blood Pressure 122/91 H 01/03/21 18:17 Pulse Oximetry 100 01/03/21 17:45 MDM - Fall MDM Narrative Medical decision making narrative: CT shows a subacute stroke. This was likely already known given the history of multiple recent strokes. Given that she has comfort focused care selected no intervention is indicated. Medical Records Attestation: I reviewed the patient's medical records. Imaging Data Radiologist's impression: ITS Impressions Head CT 01/03/21 18:42 IMPRESSION: Interval subacute cerebrovascular accident of left basal ganglia including thalamic are
--- NOTE | 2021-01-03 19:23 | PC.NURSE ---
Contacted son for further information regarding medical history. Son states that she has had multiple strokes, around 12, with the last one at the end of November. She sees Dr. Joseph at [facility] for neurology issues. She has appt in January to evaluate for dementia and Alzheimers. She has deteriorated so badly since the massive stroke in September of this year. Discussed the POLST form sent with pt from [place] that states comfort-focused treatment, states he would like the CT scans sent to the doctor that knows her and can see if it's different.
--- NOTE | 2021-01-03 21:11 | PC.NURSE ---
Gaby at [facility] notified of discharge, EMS has ETA of 2200.
== END 2021-01-03 22:00 ==
PROVIDERS: Emergency Provider Emergency Medicine; PCP Internal Medicine
DX: F03.90 Unspecified dementia, unspecified severity, without behavioral disturbance, psychotic disturbance, mood disturbance, and anxiety (principal); E78.5 Hyperlipidemia, unspecified; I10 Essential (primary) hypertension; F32.9 Major depressive disorder, single episode, unspecified; Z86.73 Personal history of transient ischemic attack (TIA), and cerebral infarction without residual deficits; Z79.82 Long term (current) use of aspirin; W19.XXXA Unspecified fall, initial encounter
CPT/HCPCS: 70450; 99284